=== PATIENT | female | born 1970 | race Caucasian/White ===

== ENCOUNTER 2020-06-27 20:36 | Inpatient (IN) | payer MEDICARE, MEDICAID, SELFPAY ==
[2020-06-27 20:41] VITALS: BP 121/58; BP 162/80; PULSE 107; PULSE 112; RESP 22; TEMP 37.6; O2SAT 95; O2SAT 97; BMI 31.3
--- NOTE | 2020-06-27 20:48 | XR_ITS ---
EXAMINATION: CHEST 1 VIEW CLINICAL INFORMATION: Shortness of breath. COMPARISON: None. TECHNIQUE: An AP view of the chest is provided. FINDINGS: The cardiac silhouette is not enlarged. The mediastinal and hilar contours are unremarkable. There are neither pleural effusions nor pneumothoraces. There is a hazy right lower lobe infiltrate. The osseous structures are unremarkable. XR/XR chest 1V IMPRESSION: Right lower lobe infiltrate concerning for pneumonia. Recommendation is for a followup chest series to be obtained following treatment and/or resolution of symptoms to assure resolution of this appearance.
--- NOTE | 2020-06-27 20:48 | ECG_ITS ---
Test Reason : SHORTNESS OF BREATH Blood Pressure : / mmHG Vent. Rate : 101 BPM Atrial Rate : 101 BPM P-R Int : 168 ms QRS Dur : 090 ms QT Int : 342 ms P-R-T Axes : 063 007 060 degrees QTc Int : 443 ms Sinus tachycardia Nonspecific ST abnormality Abnormal ECG No previous ECGs available Referred By: Generic ED Physician Electronically Signed By:DANTE PATRICIA MD
--- NOTE | 2020-06-27 21:05 | ED.URI ---
HPI - URI/Sore Throat General Chief Complaint: Upper Respiratory Symptoms Stated Complaint: Flu like Symptoms Time Seen by Provider: 06/27/20 21:40 Source: patient Mode of arrival: ambulatory Limitations: no limitations History of Present Illness HPI Narrative: 50-year-old female with past medical history of hypertension and tobacco dependence presents with 24 hours of upper respiratory symptoms, fevers, chills, cough with brown sputum, and hypoxia. She denies chest pain or pressure, palpitations, abdominal pain, abdominal distention, dysuria, hematuria, sick contacts, nausea, vomiting, diarrhea, and edema. MD elicited complaint: fever and cough Related Data Home Medications Medication Instructions Recorded Confirmed gabapentin 75 mg PO DAILY 06/28/20 06/28/20 levothyroxine [Synthroid] 2 tab PO DAILY 06/28/20 06/28/20 lisinopril 1 tab PO DAILY 06/28/20 06/28/20 Allergies Allergy/AdvReac Type Severity Reaction Status Date / Time pregabalin [From Lyrica] Allergy Unknown SWELLING Unverified 04/25/20 16:25 LYRICA Allergy Unknown Uncoded 10/06/11 00:00 Review of Systems Review of Systems: Constitutional: positive Fever, positive Chills, positive fatigue, positive Malaise ENT/Mouth: No sore throat, positive runny nose Eyes: No Discharge Cardiovascular: positive Chest Pain, positive SOB Respiratory: positive Cough, positive Sputum, positive Wheezing, positive Smoke Exposure, positive Dyspnea Gastrointestinal: No Nausea, No Vomiting, No Diarrhea Genitourinary: no irregular bleeding, No Dysuria, No Urinary Frequency, No Hematuria, No Urinary Incontinence, No Urgency, No Flank Pain, Musculoskeletal: positive Myalgia Skin: No rash Neuro: No Headache Yes all other systems are reviewed and are negative [facility] Past Medical History Attestation statement: The following information was validated with the patient. Medical History Edema Fluid retention HTN (hypertension) Social History Social History Advance Directives: No Advance Directives Information Provided: Yes Physical Exam Vital Signs: Vital Signs: Last Vital Signs Temp 100.0 F 06/28/20 00:57 Pulse 97 06/28/20 00:57 Resp 18 06/28/20 00:57 BP 125/71 06/28/20 00:57 Pulse Ox 94 06/28/20 00:57 Body Mass Index 31.3 Appearance: Alert. Oriented X3. moderate distress. Head: Normal external exam. Normocephalic. Atraumatic. Eyes: PERRLA. EOMI. Conjunctiva and sclera normal. Eyelids normal. ENT: TM's Normal. Pharynx normal. Uvula midline. Moist mucous membranes. No trismus noted. No drooling noted. No muffled voice noted. Neck: Normal inspection. Neck supple. No adenopathy. Thyroid Normal. No meningeal signs. No neck mass noted. CVS: Normal heart rate and rhythm. Heart sound normal. No murmurs noted. Pulses equal to all extremities. Respiratory: moderate respiratory distress, RR 25 per minute, O2 sat 88% on room air. Painless inspiration. Breath sounds wheezes greater on the right than the left. Chest tender to palpation on the right side. No accessory muscle usage noted or decreased air movement noted. Abdomen: Soft and nontender. Bowel sounds normal in all 4 quadrants. No distention noted. No organomegaly noted. No visible injury noted. Back: No CVA tenderness. Full range of motion noted. Skin: Skin warm and dry. Normal skin color. Normal skin turgor. No rashes/lesions/lacerations noted. Extremities: No lower extremity edema. Extremities exhibit normal range of motion. Extremities nontender. Neuro: cranial nerves 2-12 intact, no focal neural deficits, strength 5/5 to all extremities, No motor deficit. No sensory deficit. Reflexes normal. Course Course Course Narrative: 50-year-old female with past medical history of hypertension, and tobacco dependence presents with upper respiratory Symptoms for 24 hours. patient presented via EMS, was noted to have Dyspnea at 22, hypoxia in the 88 range, placed on O2 nasal cannula at 2 L at 90% then bumped up to 4 L to maintain Ost 2 sats at 94 through 96% and febrile. her symptoms could be consistent with COVID-19 so will be very gentle with fluid resuscitation at this time. Will order CBC, Chem 7, lactic, cultures, CT scan of the chest, and COVID testing. CBC and Chem 7 are within normal limits with the exception of neutrophil bandemia of 11%, and BUN of 121. 3 L of fluid total ordered, to meet 30 mg/kg for sepsis protocol. Sepsis protocol starts at 10:55 p.m. at 11:30 p.m. patient continues with oxygen 4 liters/minute With O2 sat at 96%. patient desaturates to 88-89% on room air without O2. Plan is to admit for pneumonia and hypoxia. Discussion with hospitalist via tiger text. discussion with family per patient request regarding admission and diagnosis. Consultations Consultation #1: Farhan Morataya Time: 00:10 MDM - URI/Sore Throat MDM Narrative Medical decision making narrative: pneumonia Differential Diagnosis Differential diagnosis: Likely upper respiratory infection, viral infection, bronchitis and influenza Medical Records Attestation: I reviewed the patient's medical records. Lab Data Attestation: I reviewed the patient's lab results. Result diagrams: 06/27/20 20:59 06/27/20 20:59 Labs: Lab Results 06/27/20 06/27/20 06/27/20 Range/Units 20:59 20:59 20:59 WBC 9.4 (4.8-10.8) X10*3/uL RBC 4.33 (4.20-5.50) X10*6/uL Hgb 13.1 (12.0-16.0) g/dl Hct 39.7 (37-47) % MCV 91.7 (80-98) fL MCH 30.3 (27.0-33.0) pg MCHC 33.0 (31.0-35.0) g/dl RDW 12.9 (11.0-16.0) % Plt Count 228 (160-400) X10*3/uL MPV 10.3 (9.4-12.3) fL Immature Gran % (Auto) Cancelled Neut % (Auto) Cancelled Lymph % (Auto) Cancelled [place] % (Auto) Cancelled Eos % (Auto) Cancelled Baso % (Auto) Cancelled Lymph # (Auto) Cancelled [place] # (Auto) Cancelled Eos # (Auto) Cancelled Baso # (Auto) Cancelled Abs Immat Gran (auto) Cancelled Absolute Neuts (auto) Cancelled Absolute Nucleated RBC 0.000 (0.0-0.012) X10*3/uL Nucleated RBC % (auto) 0.0 (0.0-0.2) /100WBC Neutrophils % (Manual) 69 (45-73) % Band Neutrophils % 11 H (3-5) % Lymphocytes % (Manual) 11 L (20-40) % Monocytes % (Manual) 3 (2-11) % Eosinophils % (Manual) 2 (0-4) % Metamyelocytes % 4 % Abs Neuts (Manual) 7.5 (2.2-7.9) X10*3/uL Lymphocytes # (Manual) 1.0 (0.6-4.8) X10*3/uL Monocytes # (Manual) 0.3 (0.0-1.2) X10*3/uL Eosinophils # (Manual) 0.2 (0.0-0.8) X10*3/UL Metamyelocytes # 0.4 X10*3/uL Toxic Vacuolation PRESENT Platelet Estimate NORMAL (NORMAL) Plt Morphology Comment NORMAL RBC Morphology NORMAL Hold Blue Top SEE NOTE Sodium 141 (135-145) mmol/L Potassium 3.8 (3.3-5.1) mmol/l Chloride 103 (96-108) mmol/L Carbon Dioxide 27 (22-29) mmol/L Anion Gap 15 (12-20) BUN 12 (9-16) mg/dL Creatinine 0.92 (0.5-1.4) mg/dL Estim Creat Clear Calc 82.7 Estimated GFR > 60 Random Glucose 105 (60-115) mg/dL Lactic Acid (0.5-2.0) mmol/L Calcium 8.6 (8.4-10.2) mg/dL Troponin I High Sens (<3.5-17.0) ng/L B-Natriuretic Peptide (<100) pg/mL Coronavirus (PCR) (Negative) Influenza Type A (PCR) (Negative) Influenza Type B (PCR) (Negative) RSV RNA Qual (PCR) (Negative) 06/27/20 06/27/20 06/27/20 Range/Units 20:59 22:55 22:55 WBC (4.8-10.8) X10*3/uL RBC (4.20-5.50) X10*6/uL Hgb (12.0-16.0) g/dl Hct (37-47) % MCV (80-98) fL MCH (27.0-33.0) pg MCHC (31.0-35.0) g/dl RDW (11.0-16.0) % Plt Count (160-400) X10*3/uL MPV (9.4-12.3) fL Immature Gran % (Auto) Neut % (Auto) Lymph % (Auto) [place] % (Auto) Eos % (Auto) Baso % (Auto) Lymph # (Auto) [place] # (Auto) Eos # (Auto) Baso # (Auto) Abs Immat Gran (auto) Absolute Neuts (auto) Absolute Nucleated RBC (0.0-0.012) X10*3/uL Nucleated RBC % (auto) (0.0-0.2) /100WBC Neutrophils % (Manual) (45-73) % Band Neutrophils % (3-5) % Lymphocytes % (Manual) (20-40) % Monocytes % (Manual) (2-11) % Eosinophils % (Manual) (0-4) % Metamyelocytes % % Abs Neuts (Manual) (2.2-7.9) X10*3/uL Lymphocytes # (Manual) (0.6-4.8) X10*3/uL Monocytes # (Manual) (0.0-1.2) X10*3/uL Eosinophils # (Manual) (0.0-0.8) X10*3/UL Metamyelocytes # X10*3/uL Toxic Vacuolation Platelet Estimate (NORMAL) Plt Morphology Comment RBC Morphology Hold Blue Top Sodium (135-145) mmol/L Potassium (3.3-5.1) mmol/l Chloride (96-108) mmol/L Carbon Dioxide (22-29) mmol/L Anion Gap (12-20) BUN (9-16) mg/dL Creatinine (0.5-1.4) mg/dL Estim Creat Clear Calc Estimated GFR Random Glucose (60-115) mg/dL Lactic Acid 1.3 (0.5-2.0) mmol/L Calcium (8.4-10.2) mg/dL Troponin I High Sens < 3.5 (<3.5-17.0) ng/L B-Natriuretic Peptide 121 H (<100) pg/mL Coronavirus (PCR) NEGATIVE (Negative) Influenza Type A (PCR) NEGATIVE (Negative) Influenza Type B (PCR) NEGATIVE (Negative) RSV RNA Qual (PCR) NEGATIVE (Negative) Imaging Data Chest x-ray: Attestation: I personally reviewed and interpreted this imaging study as follows: Radiologist's impression: EXAMINATION: CHEST 1 VIEW CLINICAL INFORMATION: Shortness of breath. COMPARISON: None. TECHNIQUE: An AP view of the chest is provided. FINDINGS: The cardiac silhouette is not enlarged. The mediastinal and hilar contours are unremarkable. There are neither pleural effusions nor pneumothoraces. There is a hazy right lower lobe infiltrate. The osseous structures are unremarkable. XR/XR chest 1V IMPRESSION: Right lower lobe infiltrate concerning for pneumonia. Recommendation is for a followup chest series to be obtained following treatment and/or resolution of symptoms to assure resolution of this appearance. CT scan - chest: Attestation: I personally reviewed and interpreted this imaging study as follows: Radiologist's impression: EXAMINATION: CT CHEST WITHOUT CONTRAST CLINICAL INFORMATION: Shortness of breath. Abnormal radiograph. COMPARISON: Chest radiograph from 06/27/2020 TECHNIQUE: Multidetector volumetric CT imaging of the chest was done. Axial MIP volume rendering provided. Sagittal and coronal reformatted images were obtained. This CT examination was performed using dose optimization techniques as appropriate, variously including the following: *Automated exposure control *Adjustment of mA and/or kV according to patient size (this includes techniques or standardized protocols for targeted exams where dose is matched to indication/reason for exam; i.e. extremities or head) *Use of iterative reconstruction technique DLP: 310 mGy-cm FINDINGS: LUNGS AND PLEURA: Trachea and central airways are widely patent and normal in caliber. The bronchial mon are diffusely thickened in both lungs. Mild centrilobular emphysema. There are several old small calcified nodules in lower lobes. Mild patchy groundglass opacity is present in the periphery of the anterior right upper lobe. Several small nodular and/or airspace opacities are present in the right middle lobe, consistent with infectious or inflammatory changes. There is patchy consolidation and groundglass attenuation in the right lower lobe. No evidence of pulmonary mass, pleural effusion or pneumothorax. CARDIOVASCULAR: The heart size is normal. Pulmonary arteries and thoracic aorta are normal in caliber. No pericardial effusion. MEDIASTINUM AND LOWER NECK: Esophagus and thyroid gland are unremarkable. No mediastinal mass. LYMPHATICS: No axillary or internal mammary lymphadenopathy. The visualized mediastinal lymph nodes are in the normal size range. No overt hilar lymphadenopathy is detected on this noncontrast examination. UPPER ABDOMEN: 1.9 x 2.2 cm smoothly marginated nodule of the right adrenal gland has low attenuation of 3 Hounsfield units, consistent with lipid rich adenoma. It was 1.5 x 1.9 cm on 02/17/2016. SKELETAL AND CHEST WALL: The thoracic vertebra have normal height and alignment. No suspicious skeletal lesions. No chest wall mass. CT/CT chest wo con IMPRESSION: * Mild pulmonary emphysema. * The right lower lobe consolidation and intermixed ground glass opacity is consistent with pneumonia. Infectious/inflammatory changes are observed to lesser degree in the anterior right upper lobe and right middle lobe. No pleural effusion or lymphadenopathy. 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 ECG Data Attestation: I personally reviewed and interpreted this ECG as follows: ECG interpretation date: 06/27/20 ECG interpretation time: 21:03 Interpretation: Vent. Rate : 101 BPM Atrial Rate : 101 BPM P-R Int : 168 ms QRS Dur : 090 ms QT Int : 342 ms P-R-T Axes : 063 007 060 degrees QTc Int : 443 ms Sinus tachycardia Nonspecific T wave abnormality Abnormal ECG No previous ECGs available Critical Care Time Critical Care Time Critical Care Time: Yes Total Critical Care Time: 60 Attestation: I have personally provided critical care time exclusive of time spent on separately billable procedures. Time includes review of laboratory data, radiology results, discussion with consultants, and monitoring for potential decompensation. Interventions were performed as documented. Discharge Plan Discharge Clinical Impression: Hypoxia Pneumonia Qualifiers: Pneumonia type: due to unspecified organism Laterality: right Lung location: lower lobe of lung Qualified Code(s): J18.9 - Pneumonia, unspecified organism Sepsis Qualifiers: Sepsis type: sepsis due to unspecified organism Sepsis acute organ dysfunction status: unspecified Qualified Code(s): A41.9 - Sepsis, unspecified organism Patient Disposition: Admitted As Inpatient
[2020-06-27 21:08] LABS: Hematocrit 39.7 % (37-47); Hemoglobin 13.1 g/dl (12.0-16.0); Mean Corpuscular Hemoglobin 30.3 pg (27.0-33.0); Mean Corpuscular Volume 91.7 fL (80-98); Mean Platelet Volume 10.3 fL (9.4-12.3); Platelet Count 228 X10*3/uL (160-400); Red Blood Count 4.33 X10*6/uL (4.20-5.50); Red Cell Distribution Width 12.9 % (11.0-16.0); White Blood Count 9.4 X10*3/uL (4.8-10.8)
[2020-06-27 21:36] LABS: Anion Gap 15 (12-20); Blood Urea Nitrogen 12 mg/dL (9-16); Calcium 8.6 mg/dL (8.4-10.2); Carbon Dioxide 27 mmol/L (22-29); Chloride 103 mmol/L (96-108); Creatinine Clr Calc Pharmacy 82.7; Estimated Glomerular Filt Rate > 60; Glucose Random 105 mg/dL (60-115); Potassium 3.8 mmol/l (3.3-5.1); Sodium 141 mmol/L (135-145)
[2020-06-27 21:40] LABS: B Type Natriuretic Peptide 121 pg/mL (<100); Troponin-I High Sensitivity < 3.5 ng/L (<3.5-17.0)
--- NOTE | 2020-06-27 21:41 | CT_ITS ---
EXAMINATION: CT CHEST WITHOUT CONTRAST CLINICAL INFORMATION: Shortness of breath. Abnormal radiograph. COMPARISON: Chest radiograph from 06/27/2020 TECHNIQUE: Multidetector volumetric CT imaging of the chest was done. Axial MIP volume rendering provided. Sagittal and coronal reformatted images were obtained. This CT examination was performed using dose optimization techniques as appropriate, variously including the following: *Automated exposure control *Adjustment of mA and/or kV according to patient size (this includes techniques or standardized protocols for targeted exams where dose is matched to indication/reason for exam; i.e. extremities or head) *Use of iterative reconstruction technique DLP: 310 mGy-cm FINDINGS: LUNGS AND PLEURA: Trachea and central airways are widely patent and normal in caliber. The bronchial mon are diffusely thickened in both lungs. Mild centrilobular emphysema. There are several old small calcified nodules in lower lobes. Mild patchy groundglass opacity is present in the periphery of the anterior right upper lobe. Several small nodular and/or airspace opacities are present in the right middle lobe, consistent with infectious or inflammatory changes. There is patchy consolidation and groundglass attenuation in the right lower lobe. No evidence of pulmonary mass, pleural effusion or pneumothorax. CARDIOVASCULAR: The heart size is normal. Pulmonary arteries and thoracic aorta are normal in caliber. No pericardial effusion. MEDIASTINUM AND LOWER NECK: Esophagus and thyroid gland are unremarkable. No mediastinal mass. LYMPHATICS: No axillary or internal mammary lymphadenopathy. The visualized mediastinal lymph nodes are in the normal size range. No overt hilar lymphadenopathy is detected on this noncontrast examination. UPPER ABDOMEN: 1.9 x 2.2 cm smoothly marginated nodule of the right adrenal gland has low attenuation of 3 Hounsfield units, consistent with lipid rich adenoma. It was 1.5 x 1.9 cm on 02/17/2016. SKELETAL AND CHEST WALL: The thoracic vertebra have normal height and alignment. No suspicious skeletal lesions. No chest wall mass. CT/CT chest wo con IMPRESSION: * Mild pulmonary emphysema. * The right lower lobe consolidation and intermixed ground glass opacity is consistent with pneumonia. Infectious/inflammatory changes are observed to lesser degree in the anterior right upper lobe and right middle lobe. No pleural effusion or lymphadenopathy. 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
[2020-06-27 21:42] LABS: Band Neutrophils Percent 11 % (3-5); Eosinophils Absolute Manual 0.2 X10*3/UL (0.0-0.8); Eosinophils Percent Manual 2 % (0-4); Lymphocytes Percent Manual 11 % (20-40); Metamyelocytes Absolute 0.4 X10*3/uL; Metamyelocytes Percent 4 %; Monocytes Absolute Manual 0.3 X10*3/uL (0.0-1.2); Monocytes Percent Manual 3 % (2-11); Neutrophils Absolute Manual 7.5 X10*3/uL (2.2-7.9); Neutrophils Percent Manual 69 % (45-73)
[2020-06-27 21:46] LABS: Platelet Estimate NORMAL (NORMAL); Platelet Morphology Comment NORMAL; RBC Morphology NORMAL
[2020-06-27 21:48] LABS: Toxic Vacuolation PRESENT
[2020-06-27] MEDS: 0.9 % Sodium Chloride 1,000 ML 999 ML IVCONT (22:20)
[2020-06-27] MEDS: dexAMETHasone sod phosphate 4 MG/ML VIAL 10 MG IVPUSH (22:21)
[2020-06-27] MEDS: Azithromycin 500 MG TABLET PO (22:44)
[2020-06-27] MEDS: cefTRIAXone sodium 1 GM in 0.9 % Sodium Chloride 50 ML IV (22:45)
[2020-06-27 23:08] VITALS: BP 125/59; PULSE 100; RESP 20; TEMP 38.7; O2SAT 96
--- NOTE | 2020-06-27 23:12 | PC.NURSE ---
pt has pain to her flanks with coughig
[2020-06-27 23:25] VITALS: BP 104/47; PULSE 103; O2SAT 94
[2020-06-27 23:45] LABS: Lactic Acid 1.3 mmol/L (0.5-2.0)
[2020-06-28] VITALS (10 sets, daily range): BP systolic 91–125; BP diastolic 50–82; PULSE 70–98; RESP 16–19; TEMP 35.7–37.8; O2SAT 90–96; BMI 31.3
[2020-06-28 00:12] LABS: Influenza A PCR NEGATIVE (Negative); Influenza B PCR NEGATIVE (Negative); Resp Syncy Virus RNA Qual PCR NEGATIVE (Negative); SARS COV2 PCR INHOUSE NEGATIVE (Negative)
--- NOTE | 2020-06-28 00:22 | PC.NURSE ---
pt oob to bathroom with steady slow gait.
--- NOTE | 2020-06-28 00:49 | PM.IMHP ---
History of Present Illness Date of Service: 06/28/20 Chief Complaint: SOB 50 y/o female with PMHx of HTN, Hypothyroidism and Peripheral neuropathy who presented from home due to malaise. Per history provided by the patient, for the past 2 days has been having worsening dry cough, chills, nausea, vomiting and poor appetite which prompted the patient to come to the ED for further evaluation. On presentation to the ED patient is found to be tachycardic, tachypneic with one episode of fever of 101.6. Bloodwork unremarkable besides BNP of ~120. Covid test negative. CT chest positive for RLL consolidation with ground glass opacities, emphysematous changes and incidental finding of lipid rich adenoma of the right adrenal gland. One dose of Rocephin, zithromax and 1 liter of NS given per ED. Decision for admission given. Patient seen and examined at the bedside, laying down in bed in no acute distress. ROS as above otherwise negative. Physical exam unremarkable. PMHX: HTN, HYpothyroidism, Peripheral neuropathy pSx: none Toxic habits: No hx of alcohol abuse, smoking or IVDA Review of Systems Cardiovascular: Cardiovascular: Reports dyspnea Respiratory: Respiratory: Reports cough, Reports pain with cough and Reports dyspnea PMFSH Medical History Edema Fluid retention HTN (hypertension) Functional capacity: independent ambulation Social History Advance Directives: No Advance Directives Information Provided: Yes Meds Allergies Allergy/AdvReac Type Severity Reaction Status Date / Time pregabalin [From Lyrica] Allergy Unknown SWELLING Unverified 04/25/20 16:25 LYRICA Allergy Unknown Uncoded 10/06/11 00:00 Home Medications Medication Instructions Recorded Confirmed Type gabapentin 75 mg PO DAILY 06/28/20 06/28/20 History levothyroxine [Synthroid] 2 tab PO DAILY 06/28/20 06/28/20 History lisinopril 1 tab PO DAILY 06/28/20 06/28/20 History Physical Exam Vital Signs and Narrative: Vital Signs: Last Vital Signs Temp 101.6 F H 06/27/20 23:08 Pulse 100 06/27/20 23:08 Resp 20 06/27/20 23:08 BP 125/59 L 06/27/20 23:08 Pulse Ox 96 06/27/20 23:08 Body Mass Index 31.3 Const: General: cooperative, comfortable and no acute distress Orientation/consciousness: oriented to person, oriented to place and oriented to time HENMT: Head: Yes normal to inspection Eyes: General: appearance normal, both eyes and all related structures Neck: Yes normal visual inspection Chest: Chest palpation & inspection: normal inspection of the chest Resp: Effort & Inspection: normal respiratory effort Cardio: Jugular venous distension: no JVD Rate: regular rate Rhythm: regular rhythm Heart sounds: S1 normal heart sound present and S2 normal heart sound present GI: Inspection: Yes normal to inspection Skin: General skin exam: no rashes or lesions noted Neuro: General: oriented to person, oriented to place and oriented to time Cognition (Neuro): normal cognition Motor exam (neuro): 5/5 motor strength present throughout Extrem: General: Yes normal to inspection Psych: Appearance: grossly normal Results Labs CBC and Chem 7: 06/27/20 20:59 06/27/20 20:59 Labs: Laboratory Results - last 24 hr 06/27/20 06/27/20 06/27/20 20:59 20:59 20:59 MCV 91.7 MCH 30.3 MCHC 33.0 RDW 12.9 Plt Count 228 MPV 10.3 Immature Gran % (Auto) Cancelled Neut % (Auto) Cancelled Lymph % (Auto) Cancelled [place] % (Auto) Cancelled Eos % (Auto) Cancelled Baso % (Auto) Cancelled Lymph # (Auto) Cancelled [place] # (Auto) Cancelled Eos # (Auto) Cancelled Baso # (Auto) Cancelled Abs Immat Gran (auto) Cancelled Absolute Neuts (auto) Cancelled Absolute Nucleated RBC 0.000 Nucleated RBC % (auto) 0.0 Neutrophils % (Manual) 69 Band Neutrophils % 11 H Lymphocytes % (Manual) 11 L Monocytes % (Manual) 3 Eosinophils % (Manual) 2 Metamyelocytes % 4 Abs Neuts (Manual) 7.5 Lymphocytes # (Manual) 1.0 Monocytes # (Manual) 0.3 Eosinophils # (Manual) 0.2 Metamyelocytes # 0.4 Toxic Vacuolation PRESENT Platelet Estimate NORMAL Plt Morphology Comment NORMAL RBC Morphology NORMAL Hold Blue Top SEE NOTE Anion Gap 15 Estim Creat Clear Calc 82.7 Estimated GFR > 60 Random Glucose 105 Lactic Acid Calcium 8.6 Troponin I High Sens B-Natriuretic Peptide Coronavirus (PCR) Influenza Type A (PCR) Influenza Type B (PCR) RSV RNA Qual (PCR) 06/27/20 06/27/20 06/27/20 20:59 22:55 22:55 MCV MCH MCHC RDW Plt Count MPV Immature Gran % (Auto) Neut % (Auto) Lymph % (Auto) [place] % (Auto) Eos % (Auto) Baso % (Auto) Lymph # (Auto) [place] # (Auto) Eos # (Auto) Baso # (Auto) Abs Immat Gran (auto) Absolute Neuts (auto) Absolute Nucleated RBC Nucleated RBC % (auto) Neutrophils % (Manual) Band Neutrophils % Lymphocytes % (Manual) Monocytes % (Manual) Eosinophils % (Manual) Metamyelocytes % Abs Neuts (Manual) Lymphocytes # (Manual) Monocytes # (Manual) Eosinophils # (Manual) Metamyelocytes # Toxic Vacuolation Platelet Estimate Plt Morphology Comment RBC Morphology Hold Blue Top Anion Gap Estim Creat Clear Calc Estimated GFR Random Glucose Lactic Acid 1.3 Calcium Troponin I High Sens < 3.5 B-Natriuretic Peptide 121 H Coronavirus (PCR) NEGATIVE Influenza Type A (PCR) NEGATIVE Influenza Type B (PCR) NEGATIVE RSV RNA Qual (PCR) NEGATIVE Imaging Radiologist's Impressions: Impressions Chest X-Ray 06/27/20 20:48 IMPRESSION: Right lower lobe infiltrate concerning for pneumonia. Recommendation is for a followup chest series to be obtained following treatment and/or resolution of symptoms to assure resolution of this appearance. Chest CT 06/27/20 21:41 IMPRESSION: * Mild pulmonary emphysema. * The right lower lobe consolidation and intermixed ground glass opacity is consistent with pneumonia. Infectious/inflammatory changes are observed to lesser degree in the anterior right upper lobe and right middle lobe. No pleural effusion or lymphadenopathy. 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 Assessment and Plan (1) Sepsis: Qualifiers: Sepsis acute organ dysfunction status: unspecified Sepsis type: sepsis due to unspecified organism Qualified Code(s): A41.9 - Sepsis, unspecified organism Status: Acute Keep MAP >65 mmHg Start with Zosyn for broadspectrum coverage Follow up Bcx collected in the ED Continue with IV hydration Covid negative Infectious disease consult in the am (2) Pneumonia: Qualifiers: Laterality: right Lung location: lower lobe of lung Pneumonia type: due to unspecified organism Qualified Code(s): J18.9 - Pneumonia, unspecified organism Status: Acute as above (3) Peripheral neuropathy: Status: Acute continue with gabapentin home dose (4) Hypothyroidism: Status: Acute continue with levothyroxine home dose (5) HTN (hypertension): Status: Acute continue with lisinopril home dose
[2020-06-28] MEDS: Ketorolac Tromethamine 30 MG/ML VIAL IVPUSH (00:52)
[2020-06-28] MEDS: 0.9 % Sodium Chloride 1,000 ML 999 ML IVCONT ×2 (00:52→01:00)
[2020-06-28 01:15] LABS: Appearance Urine CLEAR; Color Urine DARK YELLOW; Glucose Urine UA NEG (NEG); Leukocyte Esterase Urine NEG (NEG); Nitrite Urine NEG (NEG); Specific Gravity - Urine 1.025 (1.005-1.025); Urine Blood TRACE (NEG); Urine Ketones NEG (NEG); Urine Protein TRACE MG/DL (NEG-TRACE)
[2020-06-28 01:30] LABS: RBC Urine 0-2 /HPF (0); Squamous Epithelial Cell Urine TRACE /LPF; WBC Urine 0 /HPF (0-4)
--- NOTE | 2020-06-28 03:10 | PC.NURSE ---
VITALS STABLE HR 82 103/54 17 94% ROOM AIR. PT SLEEPING, SKIN WARM AND DRY. PT OOB TO BATHROOM WITH STEADY GAIT.
[2020-06-28] MEDS: Heparin Sodium,Porcine 5,000 UNIT/ML VIAL 5000 UNIT SUBCUT ×3 (05:02→16:36)
[2020-06-28] MEDS: Piperacillin Sodium/Tazobactam 3.375 GM in 0.9 % Sodium Chloride 50 ML IV ×2 (05:03→13:40)
[2020-06-28] MEDS: Levothyroxine Sodium 112 MCG TABLET 224 MCG PO (07:05)
--- NOTE | 2020-06-28 07:38 | PC.NURSE ---
report taken from miriam hurst pt awaiting inpt admission and bed assignment. rr even/unlabored, tolerating po w/o issue.
--- NOTE | 2020-06-28 07:56 | PC.NURSE ---
first pt call for report unsuccessul, will call back.
[2020-06-28] MEDS: lisinopriL 10 MG TABLET PO (09:02)
[2020-06-28] MEDS: clonazePAM 1 MG TABLET PO (09:02)
[2020-06-28] MEDS: Pregabalin 75 MG CAPSULE PO (09:02)
[2020-06-28] MEDS: gemfibroziL 600 MG TABLET PO ×2 (09:02→20:05)
[2020-06-28] MEDS: Escitalopram Oxalate 20 MG TABLET PO (09:02)
[2020-06-28] MEDS: 0.9 % Sodium Chloride Flush 3 ML SYRINGE IVFLUSH ×2 (09:06→16:36)
[2020-06-28 10:35] LABS: Hematocrit 36.9 % (37-47); Hemoglobin 12.1 g/dl (12.0-16.0); Mean Corpuscular HGB Conc 32.8 g/dl (31.0-35.0); Mean Corpuscular Volume 91.6 fL (80-98); Mean Platelet Volume 10.4 fL (9.4-12.3); Platelet Count 225 X10*3/uL (160-400); Red Blood Count 4.03 X10*6/uL (4.20-5.50); Red Cell Distribution Width 13.3 % (11.0-16.0); White Blood Count 14.5 X10*3/uL (4.8-10.8)
[2020-06-28 11:11] LABS: Anion Gap 14 (12-20); Blood Urea Nitrogen 10 mg/dL (9-16); Calcium 8.2 mg/dL (8.4-10.2); Carbon Dioxide 26 mmol/L (22-29); Chloride 106 mmol/L (96-108); Creatinine Clr Calc Pharmacy 102.8; Estimated Glomerular Filt Rate > 60; Glucose Random 119 mg/dL (60-115); Potassium 3.9 mmol/l (3.3-5.1); Sodium 142 mmol/L (135-145)
[2020-06-28 11:31] LABS: Band Neutrophils Percent 33 % (3-5); Lymphocytes Absolute Manual 0.7 X10*3/uL (0.6-4.8); Lymphocytes Percent Manual 5 % (20-40); Neutrophils Absolute Manual 13.8 X10*3/uL (2.2-7.9); Neutrophils Percent Manual 62 % (45-73)
[2020-06-28 11:50] LABS: RBC Morphology NOTED
[2020-06-28 11:51] LABS: Acanthocytes 1+; Platelet Estimate NORMAL (NORMAL); Platelet Morphology Comment NORMAL
--- NOTE | 2020-06-28 15:34 | W.PM.IDCN ---
History of Present Illness Data of Consult Service Date: 06/28/20 Requesting physician: Chester Kumar Primary Care Provider: Unknown Physician HPI Reason for consult: productive sputum and pleuritic chest pain She presents with pleuritic chest pain 10/16 as well as cough and pleuritic sputum. She has no fever or chills at this time She has no nausea or vomiting Review of Systems Review of Systems: Yes all other systems are reviewed and are negative Respiratory: Respiratory: Reports no additional respiratory complaints and Reports excessive phlegm production PMFSH Past Medical History Medical History Edema Fluid retention HTN (hypertension) Functional capacity: independent ambulation Social History Social History Household Members: Spouse and Other Household Members Other:: Grandchildren Housing: Apartment Do you presently have visiting nurse or other home services: No Smoking Status: Current every day smoker Tobacco Type: Cigarette Cigarettes Per Day: 20 Smoked in Last 30 Days: Yes Use of substances other than those prescribed or required for medical reasons: No Currently Displaying Signs/Symptoms of Drug Intoxication Withdrawal: No Have you been hit, kicked, punched, or otherwise hurt by someone within the past year? If so, by whom?: No Do you feel safe in your current relationship?: Yes Is there a partner from a previous relationship who is making you feel unsafe now?: No Are you made to feel afraid or neglected: No Spiritual Healthcare Practices: N/A Holiness Healthcare Practices: N/A Cultural Healthcare Practices: N/A Advance Directives: No Advance Directives Information Provided: Yes Do you have thoughts of harming others: None Do you have a plan to hurt others: No Plan Recently lost weight without trying: No Meds Allergies Allergy/AdvReac Type Severity Reaction Status Date / Time No Known Allergies Allergy Verified 06/28/20 07:48 Home Medications Medication Instructions Recorded Confirmed Type citalopram 40 mg PO DAILY 06/28/20 06/28/20 History clonazepam 1 mg PO TID 06/28/20 06/28/20 History furosemide 40 mg PO Q OTHER DAY 06/28/20 06/28/20 History furosemide 60 mg PO Q OTHER DAY 06/28/20 06/28/20 History gemfibrozil 600 mg PO BID 06/28/20 06/28/20 History levothyroxine [Synthroid] 224 mcg PO DAILY 06/28/20 06/28/20 History lisinopril 10 mg PO DAILY 06/28/20 06/28/20 History pregabalin 75 mg PO DAILY 06/28/20 06/28/20 History Physical Exam Vital Signs: Vital Signs: Last Vital Signs Temp 98.2 F 06/28/20 15:12 Pulse 92 06/28/20 15:12 Resp 18 06/28/20 15:12 BP 91/53 L 06/28/20 15:12 Pulse Ox 91 L 06/28/20 15:12 Body Mass Index 31.3 Const: General: cooperative Orientation/consciousness: oriented to person, oriented to place and oriented to time HENMT: Head: Yes normal to inspection Eyes: General: appearance normal, both eyes and all related structures Chest: Chest palpation & inspection: localized rib tenderness with anteroposterior compression Resp: Effort & Inspection: normal respiratory effort Auscultation: rhonchi (right base) Cardio: Rate: regular rate Rhythm: regular rhythm Back/Spine/Pelvis: Thoracic/Lumbar Spine: thoracic and lumbar spine normal to inspection Skin: Rashes: no rashes Neuro: General: oriented to person, oriented to place and oriented to time Cranial nerves: Yes Intact sense of smell present Assessment and Plan (1) Pneumonia: Qualifiers: Laterality: right Lung location: lower lobe of lung Pneumonia type: due to unspecified organism Qualified Code(s): J18.9 - Pneumonia, unspecified organism Status: Acute Would give IV Ceftriaxone and Zmax Po Ceftin and Zpack finish total 7 days as outpatient There is no need for Zosyn No need for COVID isolation,please remove (2) Hypoxia: Status: Acute (3) Sepsis: Qualifiers: Sepsis acute organ dysfunction status: unspecified Sepsis type: sepsis due to unspecified organism Qualified Code(s): A41.9 - Sepsis, unspecified organism Status: Acute Results Labs CBC & Chem 7: 06/29/20 06:25 06/29/20 06:25 Labs: Short CBC 06/27/20 06/28/20 Range/Units 20:59 10:15 WBC 9.4 14.5 H (4.8-10.8) X10*3/uL Hgb 13.1 12.1 (12.0-16.0) g/dl Hct 39.7 36.9 L (37-47) % Plt Count 228 225 (160-400) X10*3/uL BMP 06/27/20 06/28/20 20:59 10:15 Sodium 141 142 Potassium 3.8 3.9 Chloride 103 106 Carbon Dioxide 27 26 BUN 12 10 Creatinine 0.92 0.74 Calcium 8.6 8.2 L Urine 06/28/20 Range/Units 01:07 Urine Color DARK YELLOW Urine Appearance CLEAR Urine pH 6.0 (5.0-8.0) Ur Specific [place] 1.025 (1.005-1.025) Urine Protein TRACE (NEG-TRACE) MG/DL Urine Glucose (UA) NEG (NEG) MG/DL Microbiology Microbiology Results: Microbiology 06/27/20 22:37 Sputum - Expectorated Gram Stain - Final
--- NOTE | 2020-06-28 16:13 | PM.EVENT ---
Event Note Date of Service: 06/28/20 Event Note: Patient already seen by hospitalist team this morning Patient still seeing his shortness of breath cough Cvs: rrr, [id number] , no murmur res: Air entry slightly diminished at bases, no rales or wheezing abd: no rebound or guarding ,nt, bs present. ext pulses present , no cyanosis neuro: axo3 , nonfocal. Assessment and plan: Sepsis/pneumonia: Labs [place] has leukocytosis No fever Shortness of breath slowly improving, oxygen sats also better Ceftriaxone and azithromycin Id evaluation
--- NOTE | 2020-06-28 16:31 | PC.NURSE ---
Pt admitted today from ED for PNA. On arrival to c pt alert and oriented. VSS. Able to provide her own history. New IV started to RL arm. IVF continue infusing. Pt calm and cooperative. SR on monitor. Lungs with exp wheexing but sats wln on room air.
[2020-06-28] MEDS: cefTRIAXone sodium 2 GM in 0.9 % Sodium Chloride 50 ML IV (16:35)
[2020-06-28] MEDS: Flu Vacc QS2020-21(6mos up)/PF 0.5 ML SYRINGE IM (16:37)
[2020-06-28 21:49] LABS: Amphetamine Screen Urine Not Detected (Not Detect); Barbiturates, Urine Not Detected (Not Detect); Benzodiazepines Screen Urine POSITIVE (Not Detect); Cannabinoid Screen Urine Not Detected (Not Detect); Cocaine Screen Urine Not Detected (Not Detect); Opiate Screen Urine POSITIVE (Not Detect); Phencyclidine Screen Urine Not Detected (Not Detect)
[2020-06-29] MEDS: Acetaminophen 325 MG TABLET 650 MG PO (00:46)
[2020-06-29] MEDS: Heparin Sodium,Porcine 5,000 UNIT/ML VIAL 5000 UNIT SUBCUT ×2 (00:47→08:14)
[2020-06-29 02:58] VITALS: BP 108/62; PULSE 62; RESP 19; TEMP 36.1; O2SAT 93
[2020-06-29] MEDS: Omeprazole 20 MG CAPSULE.DR PO (05:48)
[2020-06-29] MEDS: Levothyroxine Sodium 112 MCG TABLET 224 MCG PO (05:48)
[2020-06-29 07:41] LABS: Hematocrit 32.4 % (37-47); Hemoglobin 10.6 g/dl (12.0-16.0); Mean Corpuscular HGB Conc 32.7 g/dl (31.0-35.0); Mean Corpuscular Hemoglobin 30.1 pg (27.0-33.0); Platelet Count 227 X10*3/uL (160-400); Red Blood Count 3.52 X10*6/uL (4.20-5.50); Red Cell Distribution Width 13.8 % (11.0-16.0); White Blood Count 13.7 X10*3/uL (4.8-10.8)
[2020-06-29 08:00] VITALS: BP 126/73; PULSE 69; RESP 20; TEMP 36.6; O2SAT 93
[2020-06-29 08:06] LABS: Anion Gap 11 (12-20); Blood Urea Nitrogen 14 mg/dL (9-16); Carbon Dioxide 26 mmol/L (22-29); Chloride 108 mmol/L (96-108); Creatinine Clr Calc Pharmacy 118.8; Estimated Glomerular Filt Rate > 60; Glucose Random 94 mg/dL (60-115); Potassium 3.8 mmol/l (3.3-5.1); Sodium 141 mmol/L (135-145)
[2020-06-29] MEDS: Azithromycin 500 MG in 0.9 % Sodium Chloride 250 ML 125 MG IV (08:09)
[2020-06-29] MEDS: 0.9 % Sodium Chloride 1,000 ML 100 ML IVCONT (08:12)
[2020-06-29] MEDS: clonazePAM 1 MG TABLET PO (08:14)
[2020-06-29] MEDS: Pregabalin 75 MG CAPSULE PO (08:14)
[2020-06-29] MEDS: 0.9 % Sodium Chloride Flush 3 ML SYRINGE IVFLUSH (08:14)
[2020-06-29 08:15] VITALS: BP 126/73; PULSE 69
[2020-06-29] MEDS: Furosemide 40 MG TABLET PO (08:15)
[2020-06-29] MEDS: Escitalopram Oxalate 20 MG TABLET PO (08:15)
[2020-06-29] MEDS: lisinopriL 10 MG TABLET PO (08:15)
[2020-06-29] MEDS: gemfibroziL 600 MG TABLET PO (08:15)
--- NOTE | 2020-06-29 10:21 | P.DS_ITS ---
DS: Providers Provider Date of admission: 06/28/20 00:48 Primary care physician: Unknown Physician Consults: 06/28/20 13:20 Consult to Infectious Diseases Routine Consulting Provider: Zulma Shields Reason for consultation: PNEUMONIA Has provider been notified: No DS: Diagnosis Discharge Diagnosis (1) Pneumonia: Status: Acute (2) Hypoxia: Status: Acute (3) Sepsis: Status: Acute DS: Medications Discharge Medications Home Medications: Home Medications Medication Instructions Recorded Confirmed citalopram 40 mg PO DAILY 06/28/20 06/28/20 clonazepam 1 mg PO TID 06/28/20 06/28/20 furosemide 40 mg PO Q OTHER DAY 06/28/20 06/28/20 furosemide 60 mg PO Q OTHER DAY 06/28/20 06/28/20 gemfibrozil 600 mg PO BID 06/28/20 06/28/20 levothyroxine [Synthroid] 224 mcg PO DAILY 06/28/20 06/28/20 lisinopril 10 mg PO DAILY 06/28/20 06/28/20 pregabalin 75 mg PO DAILY 06/28/20 06/28/20 Previous Rx's Medication Instructions Recorded azithromycin 500 mg PO DAILY #5 tab 06/29/20 cefuroxime axetil 500 mg PO BID #10 tab 06/29/20 DS: Summary Hospital Course Hospital Course: 50-year-old female admitted with sepsis secondary to pneumonia patient was started on IV antibiotic blood cultures were sent, COVID PCR was negative, sepsis resolved, patient remains afebrile, patient's symptoms improved, blood cultures remain negative, patient was saturating well on room air,patient was stable discharged home on p.o. antibiotic Time Spent with Patient Time attestation: Total time spent providing and/or coordinating discharge services: Physical Exam Vital Signs: Vital Signs: Last Vital Signs Temp 97.8 F 06/29/20 08:00 Pulse 69 06/29/20 08:15 Resp 20 06/29/20 08:00 BP 126/73 06/29/20 08:15 Pulse Ox 93 06/29/20 08:00 Body Mass Index 31.3 Const: Other: Last Vital Signs Temp 97.8 F 06/29/20 08:00 Pulse 69 06/29/20 08:15 Resp 20 06/29/20 08:00 BP 126/73 06/29/20 08:15 Pulse Ox 93 06/29/20 08:00 Body Mass Index 31.3 General: cooperative, comfortable and no acute distress O rientation/consciousness: oriented to person, oriented to place and oriented to time HENMT: Head: Yes normal to inspection Eyes: General: appearance normal, both eyes and all related structures Neck: Neck: Yes normal visual inspection Chest: Chest palpation & inspection: normal inspection of the chest and localized rib tenderness with anteroposterior compression Resp: Effort & Inspection: normal respiratory effort Auscultation: rhonchi (right base) Cardio: Other: Last Vital Signs Temp 97.8 F 06/29/20 08:00 Pulse 69 06/29/20 08:15 Resp 20 06/29/20 08:00 BP 126/73 06/29/20 08:15 Pulse Ox 93 06/29/20 08:00 Body Mass Index 31.3 Jugular venous distension: no JVD Rate: regular rate Rhythm: regular rhythm Heart sounds: S1 normal heart sound present and S2 normal heart sound present GI: Inspection: Yes normal to inspection Back/Spine/Pelvis: Thoracic/Lumbar Spine: thoracic and lumbar spine normal to inspection Skin: General skin exam: no rashes or lesions noted Rashes: no rashes Neuro: General: oriented to person, oriented to place and oriented to time Cranial nerves: Yes Intact sense of smell present Cognition (Neuro): normal cognition Motor exam (neuro): 5/5 motor strength present throughout Extrem: General: Yes normal to inspection Psych: Appearance: grossly normal DS: Data Data Completed and Pending Labs on day of discharge: 06/27/20 20:48 ECG 12 lead EKG Stat EKG Documentation DIRECTED XR chest 1V Stat 06/27/20 20:59 B Type Natriuretic Peptide Stat Basic Metabolic Panel Stat Complete Blood Count Man Dif Stat Hold Lt Blue - Possible Coag Stat Troponin-I High Sensitivity Stat 06/27/20 21:41 CT chest wo con Stat 06/27/20 21:43 Azithromycin [Zithromax] 500 mg PO ONCE ONE cefTRIAXone sodium [Rocephin] 1 gm 0.9 % Sodium Chloride [Ns] 50 ml IV ONCE dexAMETHasone sod phosphate [Decadron] 10 mg IVPUSH ONCE ONE 06/27/20 21:45 0.9 % Sodium Chloride [Ns] 1,000 ml IVCONT 999 mls/hr 06/27/20 22:10 cefTRIAXone sodium [Rocephin] 1 gm .ROUTE .STK-MED ONE 06/27/20 22:55 Lactic Acid Stat SARS-CoV2/FLU/RSV Stat 06/27/20 23:15 Ketorolac Tromethamine [Toradol] 30 mg IVPUSH ONCE ONE 06/28/20 00:30 0.9 % Sodium Chloride [Ns] 1,000 ml IVCONT 999 mls/hr 0.9 % Sodium Chloride [Ns] 1,000 ml IVCONT 999 mls/hr 06/28/20 00:45 Transfer Order Routine 06/28/20 01:53 Transfer Order Routine 06/28/20 05:00 Piperacillin Sodium/Tazobactam [Zosyn] 3.375 gm IV .STK-MED ONE 06/28/20 06:00 Piperacillin Sodium/Tazobactam [Zosyn] 3.375 gm 0.9 % Sodium Chloride [Ns] 50 ml IV Q6H 06/28/20 Breakfast Regular Diet 06/28/20 10:15 Basic Metabolic Panel Routine Complete Blood Count Man Dif Routine 06/28/20 12:42 Flu Vacc [id number](6mos up)/PF [Fluarix Quad [id number]] 0.5 ml IM .ONCE ONE 06/28/20 13:36 Piperacillin Sodium/Tazobactam [Zosyn] 3.375 gm IV .STK-MED ONE 06/28/20 16:23 cefTRIAXone sodium [Rocephin] 2 gm .ROUTE .STK-MED ONE 06/28/20 21:08 Drug Screen Urine Stat 06/29/20 00:18 Acetaminophen [Tylenol] 650 mg PO ONCE ONE 06/29/20 06:25 Basic Metabolic Panel DAILY@0600 Complete Blood Count no Diff DAILY@0600 06/29/20 07:53 Azithromycin [Zithromax] 500 mg IV .STK-MED ONE Laboratory Last Values WBC 13.7 X10*3/uL (4.8-10.8) H 06/29/20 06:25 RBC 3.52 X10*6/uL (4.20-5.50) L 06/29/20 06:25 Hgb 10.6 g/dl (12.0-16.0) L 06/29/20 06:25 Hct 32.4 % (37-47) L 06/29/20 06:25 MCV 92.0 fL (80-98) 06/29/20 06:25 MCH 30.1 pg (27.0-33.0) 06/29/20 06:25 MCHC 32.7 g/dl (31.0-35.0) 06/29/20 06:25 RDW 13.8 % (11.0-16.0) 06/29/20 06:25 Plt Count 227 X10*3/uL (160-400) 06/29/20 06:25 MPV 11.0 fL (9.4-12.3) 06/29/20 06:25 Immature Gran % (Auto) Cancelled 06/28/20 10:15 Neut % (Auto) Cancelled 06/28/20 10:15 Lymph % (Auto) Cancelled 06/28/20 10:15 [place] % (Auto) Cancelled 06/28/20 10:15 Eos % (Auto) Cancelled 06/28/20 10:15 Baso % (Auto) Cancelled 06/28/20 10:15 Lymph # (Auto) Cancelled 06/28/20 10:15 [place] # (Auto) Cancelled 06/28/20 10:15 Eos # (Auto) Cancelled 06/28/20 10:15 Baso # (Auto) Cancelled 06/28/20 10:15 Abs Immat Gran (auto) Cancelled 06/28/20 10:15 Absolute Neuts (auto) Cancelled 06/28/20 10:15 Absolute Nucleated RBC 0.000 X10*3/uL (0.0-0.012) 06/29/20 06:25 Nucleated RBC % (auto) 0.0 /100WBC (0.0-0.2) 06/29/20 06:25 Neutrophils % (Manual) 62 % (45-73) 06/28/20 10:15 Band Neutrophils % 33 % (3-5) H 06/28/20 10:15 Lymphocytes % (Manual) 5 % (20-40) L 06/28/20 10:15 Monocytes % (Manual) 3 % (2-11) 06/27/20 20:59 Eosinophils % (Manual) 2 % (0-4) 06/27/20 20:59 Metamyelocytes % 4 % 06/27/20 20:59 Abs Neuts (Manual) 13.8 X10*3/uL (2.2-7.9) H 06/28/20 10:15 Lymphocytes # (Manual) 0.7 X10*3/uL (0.6-4.8) 06/28/20 10:15 Monocytes # (Manual) 0.3 X10*3/uL (0.0-1.2) 06/27/20 20:59 Eosinophils # (Manual) 0.2 X10*3/UL (0.0-0.8) 06/27/20 20:59 Metamyelocytes # 0.4 X10*3/uL 06/27/20 20:59 Toxic Vacuolation PRESENT 06/27/20 20:59 Platelet Estimate NORMAL (NORMAL) 06/28/20 10:15 Plt Morphology Comment NORMAL 06/28/20 10:15 RBC Morphology NOTED 06/28/20 10:15 Acanthocytes (Spur) 1+ 06/28/20 10:15 Hold Blue Top SEE NOTE 06/27/20 20:59 Sodium 141 mmol/L (135-145) 06/29/20 06:25 Potassium 3.8 mmol/l (3.3-5.1) 06/29/20 06:25 Chloride 108 mmol/L (96-108) 06/29/20 06:25 Carbon Dioxide 26 mmol/L (22-29) 06/29/20 06:25 Anion Gap 11 (12-20) L 06/29/20 06:25 BUN 14 mg/dL (9-16) 06/29/20 06:25 Creatinine 0.64 mg/dL (0.5-1.4) 06/29/20 06:25 Estim Creat Clear Calc 118.8 06/29/20 06:25 Estimated GFR > 60 06/29/20 06:25 Random Glucose 94 mg/dL (60-115) 06/29/20 06:25 Lactic Acid 1.3 mmol/L (0.5-2.0) 06/27/20 22:55 Calcium 8.0 mg/dL (8.4-10.2) L 06/29/20 06:25 Troponin I High Sens < 3.5 ng/L (<3.5-17.0) 06/27/20 20:59 B-Natriuretic Peptide 121 pg/mL (<100) H 06/27/20 20:59 Urine Color DARK YELLOW 06/28/20 01:07 Urine Appearance CLEAR 06/28/20 01:07 Urine pH 6.0 (5.0-8.0) 06/28/20 01:07 Ur Specific [place] 1.025 (1.005-1.025) 06/28/20 01:07 Urine Protein TRACE MG/DL (NEG-TRACE) 06/28/20 01:07 Urine Glucose (UA) NEG MG/DL (NEG) 06/28/20 01:07 Urine Ketones NEG MG/DL (NEG) 06/28/20 01:07 Urine Blood TRACE (NEG) 06/28/20 01:07 Urine Nitrite NEG (NEG) 06/28/20 01:07 Ur Leukocyte Esterase NEG (NEG) 06/28/20 01:07 Urine RBC 0-2 /HPF (0) 06/28/20 01:07 Urine WBC 0 /HPF (0-4) 06/28/20 01:07 Ur Squamous Epith Cells TRACE /LPF 06/28/20 01:07 Urine Bacteria NONE /LPF 06/28/20 01:07 Urine Yeast TRACE /HPF 06/28/20 01:07 Urine Opiates Screen POSITIVE (Not Detect) H 06/28/20 21:08 Ur Barbiturates Screen Not Detected (Not Detect) 06/28/20 21:08 Ur Phencyclidine Scrn Not Detected (Not Detect) 06/28/20 21:08 Ur Amphetamines Screen Not Detected (Not Detect) 06/28/20 21:08 U Benzodiazepines Scrn POSITIVE (Not Detect) H 06/28/20 21:08 Urine Cocaine Screen Not Detected (Not Detect) 06/28/20 21:08 U Marijuana (THC) Screen Not Detected (Not Detect) 06/28/20 21:08 Coronavirus (PCR) NEGATIVE (Negative) 06/27/20 22:55 Influenza Type A (PCR) NEGATIVE (Negative) 06/27/20 22:55 Influenza Type B (PCR) NEGATIVE (Negative) 06/27/20 22:55 RSV RNA Qual (PCR) NEGATIVE (Negative) 06/27/20 22:55 Preliminary micro results at discharge 06/27/20 22:50 Blood Culture - Preliminary Blood - Venous No growth after 24 hours. 06/27/20 22:50 Blood Culture - Preliminary Blood - Venous No growth after 24 hours. Discharge Plan Discharge Anticipated Discharge Date/Time: 06/29/20 10:18 Patient Disposition: Home, Self-Care Referrals: Physician,Unknown [Primary Care Provider] - Discharge Medications: New cefuroxime axetil 500 mg tablet 500 mg PO BID Qty: 10 RF: 0 azithromycin 500 mg tablet 500 mg PO DAILY Qty: 5 RF: 0 Continued lisinopril 10 mg tablet 10 mg PO DAILY RF: 0 levothyroxine [Synthroid] 112 mcg tablet 224 mcg PO DAILY RF: 0 clonazepam 1 mg Tablet 1 mg PO TID RF: 0 gemfibrozil 600 mg Tablet 600 mg PO BID RF: 0 citalopram 40 mg Tablet 40 mg PO DAILY RF: 0 pregabalin 75 mg Capsule 75 mg PO DAILY RF: 0 furosemide 40 mg Tablet 40 mg PO Q OTHER DAY RF: 0 furosemide 40 mg Tablet 60 mg PO Q OTHER DAY RF: 0 Discharge Orders: Discharge Order (Routine); Ordered 06/29/20 Ordered By: Severino Pederson Diet: advance to usual diet Activity on Discharge: As tolerated Discharge Date/Time: 06/29/20 10:51 Visit Report Forms: Patient Portal Discharge page Care Plan Goals: see discharge instructions Health Concerns: pneumonia Plan of Treatment: p.o. antibiotic
[2020-06-29 12:51] LABS: MRSA Nasal PCR POSITIVE (Negative); SA Nasal PCR POSITIVE (Negative)
[2020-07-01 08:03] LABS: HIV AB/AG Nonreactive (Nonreactive); HIV Num 1 0.17 S/CO (0.00-0.99)
[2020-07-02 15:07] LABS: Strep Pneumo Ag urine Not Detected (Not Detected)
[2020-07-02 21:42] LABS: Legionella Ag Urine Not Detected (Not Detected)
== END 2020-06-29 10:51 | disposition home or self-care (01) | DRG 871 ==
LOC: HO.ED 06-28 00:47 → HO.IMC 06-28 07:05
PROVIDERS: Internal Medicine; Nurse Practitioner Family; Admitting Provider Internal Medicine; Emergency Provider Emergency Medicine; Visit Provider Internal Medicine
DX: A41.9 Sepsis, unspecified organism (principal); J18.9 Pneumonia, unspecified organism; F17.210 Nicotine dependence, cigarettes, uncomplicated; Z71.6 Tobacco abuse counseling; Z23 Encounter for immunization; E03.9 Hypothyroidism, unspecified; G62.9 Polyneuropathy, unspecified; Z20.828 Contact with and (suspected) exposure to other viral communicable diseases; Z79.890 Hormone replacement therapy; Z79.899 Other long term (current) drug therapy
CPT/HCPCS: 0241U; 11104; 36415; 71045; 71250; 80048; 80307; 81001; 83605; 83880; 84484; 85007; 85027; 87040; 87070; 87205; 87389; 87449; 87640; 87641; 87899; 90686; 93005; 96361; 96365; 96375; 99285; 99291; J0456; J0696; J1100; J1885; J2543

== ENCOUNTER 2021-05-21 20:28 | Inpatient (IN) | payer MEDICARE, MEDICAID, SELFPAY ==
--- NOTE | ~2021-05-21 | XR_ITS ---
EXAMINATION: XR CHEST CLINICAL INFORMATION: Pneumonia COMPARISON: Chest x-ray June 27, 2020 TECHNIQUE: Frontal portable view of the chest was obtained. 10:44 PM FINDINGS: No significant abnormality is noted involving the heart, lungs, mediastinum, bony thorax or soft tissues. XR/XR chest 1V IMPRESSION: Unremarkable examination.
[2021-05-21 20:45] VITALS: BP 122/72; BP 137/79; PULSE 96; RESP 22; TEMP 37.7; O2SAT 86; O2SAT 95; BMI 28.1
[2021-05-21] MEDS: Azithromycin 500 MG TABLET PO (21:00)
--- NOTE | 2021-05-21 21:21 | ECG_ITS ---
Test Reason : DYSPNEA Blood Pressure : / mmHG Vent. Rate : 090 BPM Atrial Rate : 090 BPM P-R Int : 176 ms QRS Dur : 086 ms QT Int : 366 ms P-R-T Axes : 059 012 066 degrees QTc Int : 447 ms Normal sinus rhythm Nonspecific ST abnormality Abnormal ECG No previous ECGs available Referred By: Louis Zelaya Electronically Signed By:DANTE PATRICIA MD
[2021-05-21] MEDS: Albuterol/Iprat 2.5/0.5MG 3 ML AMPUL.NEB INHALE (21:55)
--- NOTE | 2021-05-21 21:56 | PHA.MEDREC ---
Pharmacy Consult ? Medication Reconciliation Pharmacy has completed the medication reconciliation. Spoke with patient in ED. Patient reports being on both paroxetine for hot flashes and citalopram
[2021-05-21] MEDS: Acetaminophen 325 MG TABLET 650 MG PO (21:57)
[2021-05-21 22:05] LABS: MANUAL DIFF FLAG NO
[2021-05-21 22:06] LABS: Basophils Percent Auto 0.3 % (0-2); Eosinophils Absolute Auto 0.3 X10*3/uL (0.0-0.4); Eosinophils Percent Auto 4.3 % (0-4); Hematocrit 45.2 % (37-47); Imm Gran Abs Auto 0.03 X10*3/uL (0.00-0.03); Imm Gran Pct Auto 0.5 % (0.0-0.4); Lymphocytes Absolute Auto 0.8 X10*3/uL (1.2-4.9); Lymphocytes Percent Auto 12.3 % (20-40); Mean Corpuscular HGB Conc 33.2 g/dl (31.0-35.0); Mean Corpuscular Hemoglobin 29.6 pg (27.0-33.0); Mean Corpuscular Volume 89.3 fL (80-98); Mean Platelet Volume 10.1 fL (9.4-12.3); Monocytes Absolute Auto 0.4 X10*3/uL (0.1-1.2); Monocytes Percent Auto 6.4 % (2-11); Neutrophils Absolute Auto 4.9 X10*3/uL (2.0-8.3); Neutrophils Percent Auto 76.2 % (45-73); Platelet Count 190 X10*3/uL (160-400); Red Blood Count 5.06 X10*6/uL (4.20-5.50); Red Cell Distribution Width 13.1 % (11.0-16.0); White Blood Count 6.4 X10*3/uL (4.8-10.8)
[2021-05-21 22:18] LABS: Lactic Acid 1.5 mmol/L (0.5-2.0)
[2021-05-21 22:27] LABS: Alanine Aminotransferase 11 U/L (0-31); Albumin Level 4.1 g/dL (3.5-5.0); Alkaline Phosphatase 82 U/L (39-117); Anion Gap 10 (12-20); Aspartate Amino Transferase 17 U/L (5-31); B Type Natriuretic Peptide 24 pg/mL (<100); Bilirubin Total < 0.2 mg/dL (0.0-1.0); Blood Urea Nitrogen 8 mg/dL (9-16); Calcium 8.1 mg/dL (8.4-10.2); Carbon Dioxide 35 mmol/L (22-29); Chloride 96 mmol/L (96-108); Creatinine Clr Calc Pharmacy 76.8; Estimated Glomerular Filt Rate > 60; Glucose Random 136 mg/dL (60-115); Lactate Dehydrogenase 233 U/L (122-220); Potassium 3.2 mmol/L (3.3-5.1); Sodium 138 mmol/L (135-145); Total Protein 6.8 g/dL (6.5-8.0); Troponin-I High Sensitivity 4.3 ng/L (<3.5-17.0)
[2021-05-21 22:32] LABS: Prothrombin Time 10.8 SEC (9.9-13.0)
--- NOTE | 2021-05-21 22:33 | ED.SOB ---
HPI - SOB/Dyspnea General Chief Complaint: Dyspnea Stated Complaint: sob Time Seen by Provider: 05/21/21 21:02 Source: patient Mode of arrival: ambulatory Limitations: no limitations History of Present Illness HPI Narrative: Patient presents to ED for shortness of breath, coughing, and fever for the past 2 days. Patient's states no history of asthma or COPD, but patient is a smoker. Patient denies any swelling of lower extremities or calf pain. Related Data Home Medications Medication Instructions Recorded Confirmed citalopram 40 mg tablet 40 mg PO DAILY 06/28/20 05/21/21 clonazepam 1 mg tablet 1 mg PO TID 06/28/20 05/21/21 furosemide 40 mg tablet 40 mg PO Q OTHER DAY 06/28/20 05/21/21 furosemide 40 mg tablet 60 mg PO Q OTHER DAY 06/28/20 05/21/21 gemfibrozil 600 mg tablet 600 mg PO BID 06/28/20 05/21/21 levothyroxine 112 mcg tablet 224 mcg PO DAILY 06/28/20 05/21/21 (Synthroid) lisinopril 10 mg tablet 10 mg PO DAILY 06/28/20 05/21/21 pregabalin 75 mg capsule 75 mg PO DAILY 06/28/20 05/21/21 paroxetine HCl 10 mg tablet 10 mg PO DAILY 05/21/21 05/21/21 Allergies Allergy/AdvReac Type Severity Reaction Status Date / Time No Known Allergies Allergy Verified 06/28/20 07:48 Review of Systems Review of Systems: Yes all other systems are reviewed and are negative Constitutional: Constitutional: Reports as per HPI, Reports no additional constitutional complaints and Reports fever(s) Eyes: Eyes: Reports as per HPI and Reports no additional eye complaints ENT: Reports system reviewed and no additional complaints, except as documented and Reports as per HPI Cardiovascular: Cardiovascular: Reports as per HPI, Reports no additional cardiovascular complaints and Reports dyspnea Respiratory: Respiratory: Reports as per HPI, Reports no additional respiratory complaints, Reports cough and Reports dyspnea Gastrointestinal: Gastrointestinal: Reports as per HPI and Reports no additional gastrointestinal complaints Genitourinary: Genitourinary: Reports no additional female genitourinary complaints and Reports as per HPI Musculoskeletal: Musculoskeletal: Reports no additional musculoskeletal complaints and Reports as per HPI Integumentary/Breasts: Skin/Breast: Reports system reviewed and no additional complaints, except as docu and Reports as per HPI Neurologic: Reports system reviewed and no additional complaints, except as documented and Reports as per HPI Psychiatric: Psychiatric: Reports no additional psychiatric complaints and Reports as per HPI [facility] Past Medical History Medical History Edema Fluid retention HTN (hypertension) Social History Social History Household Members: Spouse and Other Household Members Other:: Grandchildren Housing: Apartment Do you presently have visiting nurse or other home services: No Alcohol intake: never Patient Tobacco Use Status: Current everyday Tobacco user Cigarettes Per Day: 20 Use of substances other than those prescribed or required for medical reasons: No Advance Directives: No Patient : No Physical Exam Vital Signs: Vital Signs: Last Vital Signs Temp 99.8 F 05/21/21 23:31 Pulse 95 05/21/21 23:31 Resp 16 05/21/21 23:31 BP 116/50 L 05/21/21 23:31 Pulse Ox 98 05/21/21 23:31 Body Mass Index 28.1 Const: General: cooperative, healthy appearing, comfortable, no acute distress, well developed, alert, awake and Physically active Orientation/consciousness: patient oriented x3 HENMT: Head: Yes normal to inspection, Yes No palpable skull fracture present, Yes normocephalic, Yes atraumatic and No abrasion Ears: hearing grossly normal bilaterally and external ears normal General nose exam: Normal external nose present and Normal nares present Eyes: General: appearance normal, both eyes and all related structures Neck: Neck: Yes normal visual inspection, Yes full ROM, Yes no lymphadenopathy, Yes no meningeal signs, Yes trachea midline, Yes supple and No tender Chest: Chest palpation & inspection: normal inspection of the chest and normal palpation of entire chest wall Resp: Effort & Inspection: normal respiratory effort and able to speak in complete sentences Auscultation: wheezes (audible) Cardio: Jugular venous distension: no JVD Heart sounds: S1 normal heart sound present and S2 normal heart sound present GI: Inspection: Yes normal to inspection and No abdominal wall ecchymosis Palpation (GI): Soft to palpation, not firm, nontender, no guarding and not rigid : General: No CVA tenderness and Yes no CVA tenderness Back/Spine/Pelvis: Back: no CVA tenderness, No CVA tenderness and No back tenderness Skin: General skin exam: no rashes or lesions noted and elasticity normal Neuro: General: patient oriented x3, gait normal, no meningeal signs and CN's II-XI intact bilaterally Cranial nerves: Yes CN's II-XII intact bilaterally Extrem: Other: Lower extremities negative for swelling, pitting edema, calf tenderness General: Yes normal to inspection and Yes full ROM Psych: Appearance: grossly normal, well kempt and not disheveled Course Course Course Narrative: Patient will have medical evaluation including troponin, EKG, and chest x-ray. Albuterol inhaler ordered. Patient placed on oxygen. Reevaluation(s) Reevaluation #1: Patient placed on oxygen. Albuterol nebulizer ordered. Troponin and BNP negative. Pending COVID swab and chest x-ray. Time: 22:00 Reevaluation #2: Patient D-dimer negative. Troponin negative. EKG negative for STEMI. Patient to be admitted for hypoxia due to RSV. Patient given albuterol Solu-Medrol. D-dimer negative. Patient states she feels better. Time: 23:54 MDM - SOB/Dyspnea MDM Narrative Medical decision making narrative: RSV hypoxia Lab Data Result diagrams: 05/21/21 22:00 05/21/21 22:00 Labs: Lab Results 05/21/21 05/21/21 05/21/21 Range/Units 21:45 22:00 22:00 WBC 6.4 (4.8-10.8) X10*3/uL RBC 5.06 D (4.20-5.50) X10*6/uL Hgb 15.0 D (12.0-16.0) g/dl Hct 45.2 D (37-47) % MCV 89.3 (80-98) fL MCH 29.6 (27.0-33.0) pg MCHC 33.2 (31.0-35.0) g/dl RDW 13.1 (11.0-16.0) % Plt Count 190 (160-400) X10*3/uL MPV 10.1 (9.4-12.3) fL Immature Gran % (Auto) 0.5 H (0.0-0.4) % Neut % (Auto) 76.2 H (45-73) % Lymph % (Auto) 12.3 L (20-40) % [place] % (Auto) 6.4 (2-11) % Eos % (Auto) 4.3 H (0-4) % Baso % (Auto) 0.3 (0-2) % Lymph # (Auto) 0.8 L (1.2-4.9) X10*3/uL [place] # (Auto) 0.4 (0.1-1.2) X10*3/uL Eos # (Auto) 0.3 (0.0-0.4) X10*3/uL Baso # (Auto) 0.0 (0.0-0.2) X10*3/uL Abs Immat Gran (auto) 0.03 (0.00-0.03) X10*3/uL Absolute Neuts (auto) 4.9 (2.0-8.3) X10*3/uL Absolute Nucleated RBC 0.000 (0.0-0.012) X10*3/uL Nucleated RBC % (auto) 0.0 (0.0-0.2) /100WBC PT 10.8 (9.9-13.0) SEC INR 1.0 (0.9-1.1) APTT 40.0 H (24.1-38.0) SEC D-Dimer < 200 NG/ML Sodium (135-145) mmol/L Potassium (3.3-5.1) mmol/L Chloride (96-108) mmol/L Carbon Dioxide (22-29) mmol/L Anion Gap (12-20) BUN (9-16) mg/dL Creatinine (0.5-1.4) mg/dL Estim Creat Clear Calc Estimated GFR Random Glucose (60-115) mg/dL Lactic Acid (0.5-2.0) mmol/L Calcium (8.4-10.2) mg/dL Ferritin (10-250) ng/mL Total Bilirubin (0.0-1.0) mg/dL AST (5-31) U/L ALT (0-31) U/L Alkaline Phosphatase (39-117) U/L Lactate Dehydrogenase (122-220) U/L Troponin I High Sens (<3.5-17.0) ng/L B-Natriuretic Peptide (<100) pg/mL Total Protein (6.5-8.0) g/dL Albumin (3.5-5.0) g/dL Procalcitonin ng/mL Coronavirus (PCR) NEGATIVE (Negative) Influenza Type A (PCR) NEGATIVE (Negative) Influenza Type B (PCR) NEGATIVE (Negative) RSV RNA Qual (PCR) POSITIVE A (Negative) 05/21/21 05/21/21 05/21/21 Range/Units 22:00 22:00 22:00 WBC (4.8-10.8) X10*3/uL RBC (4.20-5.50) X10*6/uL Hgb (12.0-16.0) g/dl Hct (37-47) % MCV (80-98) fL MCH (27.0-33.0) pg MCHC (31.0-35.0) g/dl RDW (11.0-16.0) % Plt Count (160-400) X10*3/uL MPV (9.4-12.3) fL Immature Gran % (Auto) (0.0-0.4) % Neut % (Auto) (45-73) % Lymph % (Auto) (20-40) % [place] % (Auto) (2-11) % Eos % (Auto) (0-4) % Baso % (Auto) (0-2) % Lymph # (Auto) (1.2-4.9) X10*3/uL [place] # (Auto) (0.1-1.2) X10*3/uL Eos # (Auto) (0.0-0.4) X10*3/uL Baso # (Auto) (0.0-0.2) X10*3/uL Abs Immat Gran (auto) (0.00-0.03) X10*3/uL Absolute Neuts (auto) (2.0-8.3) X10*3/uL Absolute Nucleated RBC (0.0-0.012) X10*3/uL Nucleated RBC % (auto) (0.0-0.2) /100WBC PT (9.9-13.0) SEC INR (0.9-1.1) APTT (24.1-38.0) SEC D-Dimer NG/ML Sodium 138 (135-145) mmol/L Potassium 3.2 L (3.3-5.1) mmol/L Chloride 96 (96-108) mmol/L Carbon Dioxide 35 H (22-29) mmol/L Anion Gap 10 L (12-20) BUN 8 L (9-16) mg/dL Creatinine 0.93 (0.5-1.4) mg/dL Estim Creat Clear Calc 76.8 Estimated GFR > 60 Random Glucose 136 H (60-115) mg/dL Lactic Acid (0.5-2.0) mmol/L Calcium 8.1 L (8.4-10.2) mg/dL Ferritin 64 (10-250) ng/mL Total Bilirubin < 0.2 (0.0-1.0) mg/dL AST 17 (5-31) U/L ALT 11 (0-31) U/L Alkaline Phosphatase 82 (39-117) U/L Lactate Dehydrogenase 233 H (122-220) U/L Troponin I High Sens 4.3 (<3.5-17.0) ng/L B-Natriuretic Peptide 24 (<100) pg/mL Total Protein 6.8 (6.5-8.0) g/dL Albumin 4.1 (3.5-5.0) g/dL Procalcitonin 0.03 ng/mL Coronavirus (PCR) (Negative) Influenza Type A (PCR) (Negative) Influenza Type B (PCR) (Negative) RSV RNA Qual (PCR) (Negative) 05/21/21 Range/Units 22:00 WBC (4.8-10.8) X10*3/uL RBC (4.20-5.50) X10*6/uL Hgb (12.0-16.0) g/dl Hct (37-47) % MCV (80-98) fL MCH (27.0-33.0) pg MCHC (31.0-35.0) g/dl RDW (11.0-16.0) % Plt Count (160-400) X10*3/uL MPV (9.4-12.3) fL Immature Gran % (Auto) (0.0-0.4) % Neut % (Auto) (45-73) % Lymph % (Auto) (20-40) % [place] % (Auto) (2-11) % Eos % (Auto) (0-4) % Baso % (Auto) (0-2) % Lymph # (Auto) (1.2-4.9) X10*3/uL [place] # (Auto) (0.1-1.2) X10*3/uL Eos # (Auto) (0.0-0.4) X10*3/uL Baso # (Auto) (0.0-0.2) X10*3/uL Abs Immat Gran (auto) (0.00-0.03) X10*3/uL Absolute Neuts (auto) (2.0-8.3) X10*3/uL Absolute Nucleated RBC (0.0-0.012) X10*3/uL Nucleated RBC % (auto) (0.0-0.2) /100WBC PT (9.9-13.0) SEC INR (0.9-1.1) APTT (24.1-38.0) SEC D-Dimer NG/ML Sodium (135-145) mmol/L Potassium (3.3-5.1) mmol/L Chloride (96-108) mmol/L Carbon Dioxide (22-29) mmol/L Anion Gap (12-20) BUN (9-16) mg/dL Creatinine (0.5-1.4) mg/dL Estim Creat Clear Calc Estimated GFR Random Glucose (60-115) mg/dL Lactic Acid 1.5 (0.5-2.0) mmol/L Calcium (8.4-10.2) mg/dL Ferritin (10-250) ng/mL Total Bilirubin (0.0-1.0) mg/dL AST (5-31) U/L ALT (0-31) U/L Alkaline Phosphatase (39-117) U/L Lactate Dehydrogenase (122-220) U/L Troponin I High Sens (<3.5-17.0) ng/L B-Natriuretic Peptide (<100) pg/mL Total Protein (6.5-8.0) g/dL Albumin (3.5-5.0) g/dL Procalcitonin ng/mL Coronavirus (PCR) (Negative) Influenza Type A (PCR) (Negative) Influenza Type B (PCR) (Negative) RSV RNA Qual (PCR) (Negative) ECG Data Interpretation: Normal sinus rhythm. Normal EKG. Ventricular rate 90. Pr interval 176. QRS 86. QTC 447. Critical Care Time Critical Care Time Critical Care Time: Yes Total Critical Care Time: 60 Attestation: RSV hypoxia. Labs ordered. Patient placed on oxygen. Albuterol prednisone ordered. Case discussed with hospitalist. Discharge Plan Discharge Clinical Impression: RSV (respiratory syncytial virus infection) Patient Disposition: Admitted As Inpatient
[2021-05-21 22:44] LABS: Influenza A PCR NEGATIVE (Negative); Influenza B PCR NEGATIVE (Negative); Resp Syncy Virus RNA Qual PCR POSITIVE (Negative); SARS COV2 PCR INHOUSE NEGATIVE (Negative)
[2021-05-21 22:45] LABS: Procalcitonin 0.03 ng/mL
[2021-05-21 22:46] LABS: Ferritin 64 ng/mL (10-250)
[2021-05-21 23:01] LABS: D Dimer < 200 NG/ML
[2021-05-21] MEDS: methylPREDNISolone Sod Succ 125 MG/2 ML VIAL IVPUSH (23:30)
[2021-05-21 23:31] VITALS: BP 116/50; PULSE 95; RESP 16; TEMP 37.7; O2SAT 98
[2021-05-22] VITALS (17 sets, daily range): BP systolic 101–128; BP diastolic 43–72; PULSE 71–93; RESP 12–20; TEMP 36.2–36.9; O2SAT 80–97
--- NOTE | 2021-05-22 01:04 | PM.IMHP ---
History of Present Illness Date of Service: 05/22/21 Chief Complaint: Shortness of breath 51-year-old female with a past medical history of hypertension, hypothyroidism, peripheral edema, tobacco dependence, anxiety, depression presented to the hospital with a chief complaint of shortness of breath. Patient reports that over the past few days she has been having cough with yellowish sputum production, complains of shortness of breath even at rest; and today she could not breathe hence called EMS and came to the hospital. Denies any chest pain palpitations lightheadedness or dizziness. Denies any recent travel or sick contacts. Patient reports that she smokes about a pack of cigarettes but over the past few days she is not smoking October. Also mentions he has decreased appetite and complains of generalized weakness. Denies any GI or symptoms. Review of all other systems is negative except mentioned above ER course: Per ER team patient's EKG was nonischemic; exam noted to have wheezing; ER team reported the EMS noted the patient was saturating in 70s and subsequently placed on 6 L of nasal cannula and brought to the hospital. Subsequently in the ER patient was saturating in 80s on room air and was placed on supplemental oxygen. Patient was given nebulizations, steroids; on labs noted to have RSV positive; COVID-19 negative; CT scan showed Right lower lobe pneumonia and emphysema PMFSH Medical History Edema Fluid retention HTN (hypertension) Pertinent family history: Reviewed Social History Household Members: Spouse and Other Household Members Other:: Grandchildren Housing: Apartment Do you presently have visiting nurse or other home services: No Alcohol intake: never Patient Tobacco Use Status: Current everyday Tobacco user Cigarettes Per Day: 20 Use of substances other than those prescribed or required for medical reasons: No Advance Directives: No Patient : No Meds Allergies Allergy/AdvReac Type Severity Reaction Status Date / Time No Known Allergies Allergy Verified 06/28/20 07:48 Active Medications: Current Medications Acetaminophen (Acetaminophen 325 Mg Tablet) 650 mg PO Q6H PRN PRN Reason: Pain, Mild (Pain Scale 1-3) Albuterol/Ipratropium (Albuterol/Iprat 2.5/0.5mg 3 Ml Ampul.Neb) 3 ml INHALE RQ4H WHILE AWAKE [facility] Azithromycin (Azithromycin 500 Mg Tablet) 500 mg PO Q24H [facility] Benzonatate (Benzonatate 100 Mg Capsule) 100 mg PO TID PRN PRN Reason: Cough Clonazepam (Clonazepam 1 Mg Tablet) 1 mg PO TID [facility] Enoxaparin Sodium (Enoxaparin Sodium 40 Mg/0.4 Ml Syringe) 40 mg SUBCUT Q24H ADAM Famotidine (Famotidine 20 Mg Tablet) 20 mg PO BID ADAM Furosemide (Furosemide 40 Mg Tablet) 40 mg PO Q OTHER DAY ADAM; Protocol Furosemide (Furosemide 20 Mg Tablet) 60 mg PO Q OTHER DAY ADAM; Protocol Gemfibrozil (Gemfibrozil 600 Mg Tablet) 600 mg PO BID [facility] Levothyroxine Sodium (Levothyroxine Sodium 112 Mcg Tablet) 224 mcg PO DAILY [facility] Lisinopril (Lisinopril 10 Mg Tablet) 10 mg PO DAILY ADAM; Protocol Melatonin (Melatonin 3 Mg Tablet) 6 mg PO BEDTIME PRN PRN Reason: Insomnia Methylprednisolone Sodium Succinate (Methylprednisolone Sod Succ 40 Mg/Ml Vial) 40 mg IVPUSH Q6H [facility] Non-Formulary Medication (Citalopram) 40 mg PO DAILY [facility] Paroxetine HCl (Paroxetine Hcl 10 Mg Tablet) 10 mg PO DAILY [facility] Pharmacy Consult (Consult Rx Perform Med Rec) 1 each MISCELLANE ONCE PRN PRN Reason: Consult order Pregabalin (Pregabalin 75 Mg Capsule) 75 mg PO DAILY [facility] Senna (Sennosides 8.6 Mg Tablet) 17.2 mg PO BEDTIME PRN PRN Reason: Constipation Sodium Chloride (0.9 % Sodium Chloride Flush 3 Ml Syringe) 3 ml IVFLUSH QSHIFT [facility] Home Medications Medication Instructions Recorded Confirmed Last Taken Type citalopram 40 mg tablet 40 mg PO DAILY 06/28/20 05/21/21 05/21/21 History clonazepam 1 mg tablet 1 mg PO TID 06/28/20 05/21/21 05/21/21 History furosemide 40 mg tablet 40 mg PO Q OTHER DAY 06/28/20 05/21/21 05/21/21 History furosemide 40 mg tablet 60 mg PO Q OTHER DAY 06/28/20 05/21/21 05/20/21 History gemfibrozil 600 mg tablet 600 mg PO BID 06/28/20 05/21/21 05/21/21 History levothyroxine 112 mcg tablet 224 mcg PO DAILY 06/28/20 05/21/21 05/21/21 History (Synthroid) lisinopril 10 mg tablet 10 mg PO DAILY 06/28/20 05/21/21 05/21/21 History pregabalin 75 mg capsule 75 mg PO DAILY 06/28/20 05/21/21 05/21/21 History paroxetine HCl 10 mg tablet 10 mg PO DAILY 05/21/21 05/21/21 05/21/21 History Physical Exam Vital Signs and Narrative: Vital Signs: Last Vital Signs Temp 99.8 F 05/21/21 23:31 Pulse 95 05/21/21 23:31 Resp 16 05/21/21 23:31 BP 116/50 L 05/21/21 23:31 Pulse Ox 98 05/21/21 23:31 Body Mass Index 28.1 Results Labs CBC and Chem 7: 05/21/21 22:00 05/21/21 22:00 Labs: Laboratory Results - last 24 hr 05/21/21 05/21/21 05/21/21 21:45 22:00 22:00 MCV 89.3 MCH 29.6 MCHC 33.2 RDW 13.1 Plt Count 190 MPV 10.1 Immature Gran % (Auto) 0.5 H Neut % (Auto) 76.2 H Lymph % (Auto) 12.3 L [place] % (Auto) 6.4 Eos % (Auto) 4.3 H Baso % (Auto) 0.3 Lymph # (Auto) 0.8 L [place] # (Auto) 0.4 Eos # (Auto) 0.3 Baso # (Auto) 0.0 Abs Immat Gran (auto) 0.03 Absolute Neuts (auto) 4.9 Absolute Nucleated RBC 0.000 Nucleated RBC % (auto) 0.0 PT 10.8 INR 1.0 APTT 40.0 H D-Dimer < 200 Anion Gap Estim Creat Clear Calc Estimated GFR Random Glucose Lactic Acid Calcium Ferritin Total Bilirubin AST ALT Alkaline Phosphatase Lactate Dehydrogenase Troponin I High Sens B-Natriuretic Peptide Total Protein Albumin Procalcitonin Coronavirus (PCR) NEGATIVE Influenza Type A (PCR) NEGATIVE Influenza Type B (PCR) NEGATIVE RSV RNA Qual (PCR) POSITIVE A 05/21/21 05/21/21 05/21/21 22:00 22:00 22:00 MCV MCH MCHC RDW Plt Count MPV Immature Gran % (Auto) Neut % (Auto) Lymph % (Auto) [place] % (Auto) Eos % (Auto) Baso % (Auto) Lymph # (Auto) [place] # (Auto) Eos # (Auto) Baso # (Auto) Abs Immat Gran (auto) Absolute Neuts (auto) Absolute Nucleated RBC Nucleated RBC % (auto) PT INR APTT D-Dimer Anion Gap 10 L Estim Creat Clear Calc 76.8 Estimated GFR > 60 Random Glucose 136 H Lactic Acid Calcium 8.1 L Ferritin 64 Total Bilirubin < 0.2 AST 17 ALT 11 Alkaline Phosphatase 82 Lactate Dehydrogenase 233 H Troponin I High Sens 4.3 B-Natriuretic Peptide 24 Total Protein 6.8 Albumin 4.1 Procalcitonin 0.03 Coronavirus (PCR) Influenza Type A (PCR) Influenza Type B (PCR) RSV RNA Qual (PCR) 05/21/21 22:00 MCV MCH MCHC RDW Plt Count MPV Immature Gran % (Auto) Neut % (Auto) Lymph % (Auto) [place] % (Auto) Eos % (Auto) Baso % (Auto) Lymph # (Auto) [place] # (Auto) Eos # (Auto) Baso # (Auto) Abs Immat Gran (auto) Absolute Neuts (auto) Absolute Nucleated RBC Nucleated RBC % (auto) PT INR APTT D-Dimer Anion Gap Estim Creat Clear Calc Estimated GFR Random Glucose Lactic Acid 1.5 Calcium Ferritin Total Bilirubin AST ALT Alkaline Phosphatase Lactate Dehydrogenase Troponin I High Sens B-Natriuretic Peptide Total Protein Albumin Procalcitonin Coronavirus (PCR) Influenza Type A (PCR) Influenza Type B (PCR) RSV RNA Qual (PCR) Imaging Radiologist's Impressions: Impressions Chest X-Ray 05/21/21 22:39 IMPRESSION: Unremarkable examination. Assessment and Plan (1) RSV (respiratory syncytial virus infection): Status: Acute 51-year-old female with a past medical history of hypertension, hypothyroidism, peripheral edema, tobacco dependence, anxiety, depression presented to the hospital with a chief complaint of shortness of breath. Noted to have pneumonia/RSVinfection/reactive airways. Admitted for further management. Acute hypoxic respiratory failure: In the setting of pneumonia/reactive airway/RSV infection Patient breathing comfortably on supplemental oxygen. Reactive airway disease: Patient has undiagnosed COPD. CT chest showed emphysema. Patient has chronic smoking history since age of 9. Continue Solu-Medrol 40 mg IV Duo[facility] Pulmonology consult Pneumonia/RSV infection: Continue ceftriaxone azithromycin. Id consult. History of hypothyroidism: Continue home levothyroxine History of peripheral edema: Hold home diuretics for now. History of tobacco dependence: Counseled on smoking cessation. History of anxiety/depression: Continue home paroxetine/clonazepam/citalopram History of peripheral neuropathy: Continue home pregabalin DVT prophylaxis: Lovenox Code status: Full code Quality Stroke Does the patient have a stroke diagnosis?: No VTE Prior VTE?: No VTE Risk Level:: Medical - moderate - high VTE Device Contraindication: Treatment Not Indicated VTE Drug Contraindication: N/A - Med Ordered
--- NOTE | 2021-05-22 01:40 | PC.NURSE ---
PHLEBOTOMY IN ROOM FOR LABS.
[2021-05-22 01:51] LABS: Venous Blood Gas Refer to POC result
[2021-05-22 01:52] LABS: VBG HCO3 35 mmol/L (22-26); VBG pCO2 60 mmHg; VBG pH 7.37 (7.32-7.43); VBG pO2 63 mmHg
[2021-05-22] MEDS: cefTRIAXone sodium 1 GM in 0.9 % Sodium Chloride 50 ML IV (02:00)
[2021-05-22] MEDS: Enoxaparin Sodium 40 MG/0.4 ML SYRINGE SUBCUT (02:00)
--- NOTE | 2021-05-22 04:33 | PC.NURSE ---
PT DRESSED IN HER CLOTHES, UP WALKING AROUND WITHOUT A MASK STATING I NEED TO USE THE PHONE OUTSIDE . PT REMINDED TO WEAR HER MASK . PT REMINDED SHE IS GETTING ADMITTED AND AWAITING FOR ROOM ASSIGNMENT. PT ALERT, PT CONTINUE TO PULL OFF HER OXYGEN AND GETS DRESSED.
[2021-05-22] MEDS: Levothyroxine Sodium 112 MCG TABLET 224 MCG PO (04:59)
[2021-05-22] MEDS: methylPREDNISolone Sod Succ 40 MG/ML VIAL IVPUSH ×3 (04:59→17:45)
--- NOTE | 2021-05-22 05:18 | PC.NURSE ---
VS OBTAINED. PT UP AND PACING AROUND ROOM, PT CONTINUE TO REMOVED LEADS AND GOWN. PT EDUCATED ON BEING ADMITTED. PT'S PO IS 79% ON RA. PT'S OXYGEN REPLACED. PT EDUCATED ON OXYGEN LEVEL AND THE NEED TO LEAVE NC ON. PT REMAINS ALERT, RESPIRATIONS IS NON-LABORED AND NC ON PT. PT AWAITING FOR ROOM ASSIGNMENT. PT MEDICATED PER EMAR.
--- NOTE | 2021-05-22 06:58 | PC.NURSE ---
REPORT GIVEN TO ON-COMING NURSE.
--- NOTE | 2021-05-22 07:35 | PC.NURSE ---
Assumed care of patient. Pt is resting comfortably in her room and does not appear to be in any respiratory distress. Pt remains on oxygen via NC at 4lpm. Pt placed on cardiac monitoring. Pt given breakfast and is tolerating PO intake.
[2021-05-22] MEDS: gemfibroziL 600 MG TABLET PO ×2 (07:51→15:35)
--- NOTE | 2021-05-22 08:15 | PC.NURSE ---
Called report to Whit in the isolation unit. Called respiratory to come do the duoneb prior to being transported
[2021-05-22] MEDS: lisinopriL 10 MG TABLET PO (08:24)
[2021-05-22] MEDS: clonazePAM 1 MG TABLET PO ×3 (08:24→21:36)
[2021-05-22] MEDS: Famotidine 20 MG TABLET PO ×2 (08:24→21:36)
[2021-05-22] MEDS: PARoxetine HCL 10 MG TABLET PO (08:24)
[2021-05-22] MEDS: Escitalopram Oxalate 20 MG TABLET PO (08:25)
[2021-05-22 08:28] LABS: MANUAL DIFF FLAG NO
[2021-05-22] MEDS: Albuterol/Iprat 2.5/0.5MG 3 ML AMPUL.NEB INHALE ×4 (08:28→19:59)
[2021-05-22 08:29] LABS: Basophils Percent Auto 0.1 % (0-2); Eosinophils Percent Auto 0.1 % (0-4); Hematocrit 45.5 % (37-47); Hemoglobin 14.9 g/dl (12.0-16.0); Imm Gran Abs Auto 0.03 X10*3/uL (0.00-0.03); Imm Gran Pct Auto 0.4 % (0.0-0.4); Lymphocytes Absolute Auto 0.7 X10*3/uL (1.2-4.9); Lymphocytes Percent Auto 9.8 % (20-40); Mean Corpuscular HGB Conc 32.7 g/dl (31.0-35.0); Mean Corpuscular Hemoglobin 29.4 pg (27.0-33.0); Mean Corpuscular Volume 89.9 fL (80-98); Mean Platelet Volume 10.4 fL (9.4-12.3); Monocytes Absolute Auto 0.1 X10*3/uL (0.1-1.2); Neutrophils Absolute Auto 6.2 X10*3/uL (2.0-8.3); Neutrophils Percent Auto 88.6 % (45-73); Platelet Count 204 X10*3/uL (160-400); Red Blood Count 5.06 X10*6/uL (4.20-5.50)
[2021-05-22 08:47] LABS: Anion Gap 11 (12-20); Blood Urea Nitrogen 8 mg/dL (9-16); Calcium 8.3 mg/dL (8.4-10.2); Carbon Dioxide 35 mmol/L (22-29); Chloride 96 mmol/L (96-108); Creatinine Clr Calc Pharmacy 85.1; Estimated Glomerular Filt Rate > 60; Glucose Random 168 mg/dL (60-115); Potassium 3.6 mmol/L (3.3-5.1); Sodium 138 mmol/L (135-145)
--- NOTE | 2021-05-22 10:05 | PM.CNPUL ---
History of Present Illness History of Present Illness Consult date: 05/22/21 Reason for consult: dyspnea and cough Chief complaint: COPD exacerbation Narrative: This 51 years old female is being seen for pulmonary consult this morning. She has history of cough with shortness of breath for a few days. Yesterday it became quite severe when she was doing some physical work. Denies any chest pain. Denies fever or chills. She has been coughing up with intermittent yellowish mucus. After being evaluated in the emergency room she is the admitted for further care. There is evidence of or SV respiratory virus infection. But no definite pneumonia. Patient is a smoker of 1 pack a day for her adult life, but she claims that she has not been diagnosed to have COPD so for. She is not on any bronchodilator therapy. Her past history includes hypertension, hypothyroidism, anxiety, depression, , nonspecific edema around the ankle. She had a CT scan of the chest in June 28, which did show an infiltrate in the right lower lobe. Review of Systems Review of Systems: Yes all other systems are reviewed and are negative Constitutional: Constitutional: Reports fatigue (Mild) Eyes: Eyes: Reports no additional eye complaints ENT: Reports system reviewed and no additional complaints, except as documented Cardiovascular: Cardiovascular: Reports no additional cardiovascular complaints Respiratory: Respiratory: Reports as per HPI Gastrointestinal: Gastrointestinal: Denies nausea and Denies vomiting Genitourinary: Genitourinary: Reports no additional female genitourinary complaints Musculoskeletal: Musculoskeletal: Reports no additional musculoskeletal complaints Integumentary/Breasts: Skin/Breast: Reports system reviewed and no additional complaints, except as docu Neurologic: Reports system reviewed and no additional complaints, except as documented Endocrine: Endocrine: Reports fatigue (Mild) [facility] Past Medical History Medical History COPD exacerbation Edema Fluid retention HTN (hypertension) Smoker Social History Social History Household Members: Spouse and Other Household Members Other:: Grandchildren Housing: Apartment Do you presently have visiting nurse or other home services: No Alcohol intake: never Patient Tobacco Use Status: Current everyday Tobacco user Cigarettes Per Day: 20 Use of substances other than those prescribed or required for medical reasons: No Advance Directives: No Patient : No Meds Allergies Allergy/AdvReac Type Severity Reaction Status Date / Time No Known Allergies Allergy Verified 06/28/20 07:48 Active Medications: Current Medications Acetaminophen (Acetaminophen 325 Mg Tablet) 650 mg PO Q6H PRN PRN Reason: Pain, Mild (Pain Scale 1-3) Albuterol/Ipratropium (Albuterol/Iprat 2.5/0.5mg 3 Ml Ampul.Neb) 3 ml INHALE RQ4H WHILE AWAKE [facility] Last Admin: 05/22/21 08:28 Dose: 3 ml Documented by: Azithromycin (Azithromycin 500 Mg Tablet) 500 mg PO BEDTIME [facility] Last Admin: 05/21/21 21:00 Dose: 500 mg Documented by: Benzonatate (Benzonatate 100 Mg Capsule) 100 mg PO TID PRN PRN Reason: Cough Clonazepam (Clonazepam 1 Mg Tablet) 1 mg PO TID [facility] Last Admin: 05/22/21 08:24 Dose: 1 mg Documented by: Enoxaparin Sodium (Enoxaparin Sodium 40 Mg/0.4 Ml Syringe) 40 mg SUBCUT Q24H [facility] Last Admin: 05/22/21 02:00 Dose: 40 mg Documented by: Escitalopram Oxalate (Escitalopram Oxalate 20 Mg Tablet) 20 mg PO DAILY [facility] Last Admin: 05/22/21 08:25 Dose: 20 mg Documented by: Famotidine (Famotidine 20 Mg Tablet) 20 mg PO BID [facility] Last Admin: 05/22/21 08:24 Dose: 20 mg Documented by: Gemfibrozil (Gemfibrozil 600 Mg Tablet) 600 mg PO BIDAC [facility] Last Admin: 05/22/21 07:51 Dose: 600 mg Documented by: Ceftriaxone Sodium 1 gm/ (Sodium Chloride) 50 mls @ 100 mls/hr IV Q24H [facility] Levothyroxine Sodium (Levothyroxine Sodium 112 Mcg Tablet) 224 mcg PO DAILY@0630 [facility] Last Admin: 05/22/21 04:59 Dose: 224 mcg Documented by: Lisinopril (Lisinopril 10 Mg Tablet) 10 mg PO DAILY [facility]; Protocol Last Admin: 05/22/21 08:24 Dose: 10 mg Documented by: Melatonin (Melatonin 3 Mg Tablet) 6 mg PO BEDTIME PRN PRN Reason: Insomnia Methylprednisolone Sodium Succinate (Methylprednisolone Sod Succ 40 Mg/Ml Vial) 40 mg IVPUSH Q6H [facility] Last Admin: 05/22/21 04:59 Dose: 40 mg Documented by: Paroxetine HCl (Paroxetine Hcl 10 Mg Tablet) 10 mg PO DAILY [facility] Last Admin: 05/22/21 08:24 Dose: 10 mg Documented by: Pharmacy Consult (Consult Rx Perform Med Rec) 1 each MISCELLANE ONCE PRN PRN Reason: Consult order Pregabalin (Pregabalin 75 Mg Capsule) 75 mg PO DAILY [facility] Senna (Sennosides 8.6 Mg Tablet) 17.2 mg PO BEDTIME PRN PRN Reason: Constipation Sodium Chloride (0.9 % Sodium Chloride Flush 3 Ml Syringe) 3 ml IVFLUSH QSHIFT [facility] Last Admin: 05/22/21 07:37 Dose: Not Given Documented by: Home Medications Medication Instructions Recorded Confirmed Last Taken Type citalopram 40 mg tablet 40 mg PO DAILY 06/28/20 05/21/21 05/21/21 History clonazepam 1 mg tablet 1 mg PO TID 06/28/20 05/21/21 05/21/21 History furosemide 40 mg tablet 40 mg PO Q OTHER DAY 06/28/20 05/21/21 05/21/21 History furosemide 40 mg tablet 60 mg PO Q OTHER DAY 06/28/20 05/21/21 05/20/21 History gemfibrozil 600 mg tablet 600 mg PO BID 06/28/20 05/21/21 05/21/21 History levothyroxine 112 mcg tablet 224 mcg PO DAILY 06/28/20 05/21/21 05/21/21 History (Synthroid) lisinopril 10 mg tablet 10 mg PO DAILY 06/28/20 05/21/21 05/21/21 History pregabalin 75 mg capsule 75 mg PO DAILY 06/28/20 05/21/21 05/21/21 History paroxetine HCl 10 mg tablet 10 mg PO DAILY 05/21/21 05/21/21 05/21/21 History Physical Exam Vital Signs: Vital Signs: Last Vital Signs Temp 97.9 F 05/22/21 09:42 Pulse 76 05/22/21 09:54 Resp 20 05/22/21 09:42 BP 113/43 L 05/22/21 09:54 Pulse Ox 97 05/22/21 09:54 Body Mass Index 28.1 Const: General: comfortable, no acute distress, alert and awake Orientation/consciousness: patient oriented x3 HENMT: Head: Yes normal to inspection General nose exam: No nasal polyps present and No nasal discharge present Face and sinus: Yes sinuses nontender Mouth: oropharynx normal Throat: Yes posterior oropharynx normal Eyes: General: appearance normal, both eyes and all related structures Neck: Neck: Yes normal visual inspection, Yes no lymphadenopathy, Yes trachea midline and Yes no JVD Thyroid: Thyroid normal Chest: Chest palpation & inspection: normal inspection of the chest, normal palpation of entire chest wall and no tenderness Resp: Other: Percussion note resonant,, breath sounds are distant with prolonged expiratory phase. Only a few, Creps and rhonchi over the basilar area. Cardio: Palpation: normal PMI Rate: regular rate Rhythm: regular rhythm Heart sounds: no gallops and no murmurs Peripheral pulses: Peripheral pulses 2+ throughout GI: Palpation (GI): Soft to palpation, nontender, No hepatosplenomegaly present and no masses Auscultation: normal bowel sounds Back/Spine/Pelvis: Thoracic/Lumbar Spine: thoracic and lumbar spine normal to inspection Skin: General skin exam: no rashes or lesions noted Neuro: General: patient oriented x3 and no focal motor deficits Cranial nerves: Yes CN's II-XII intact bilaterally Extrem: General: Yes normal to inspection, Yes no clubbing, cyanosis or edema and Yes no calf tenderness Psych: Appearance: grossly normal and well kempt Speech and movement: Normal speech and movement present Results Laboratory Findings CBC and BMP: 05/22/21 08:07 05/22/21 08:07 ABG, PT/INR, D-dimer: PT/INR, D-dimer PT 10.8 SEC (9.9-13.0) 05/21/21 22:00 INR 1.0 (0.9-1.1) 05/21/21 22:00 D-Dimer < 200 NG/ML 05/21/21 22:00 Abnormal lab findings: Abnormal Labs 05/21/21 05/21/21 05/21/21 21:45 22:00 22:00 Immature Gran % (Auto) 0.5 H Neut % (Auto) 76.2 H Lymph % (Auto) 12.3 L [place] % (Auto) Eos % (Auto) 4.3 H Lymph # (Auto) 0.8 L APTT 40.0 H VBG HCO3 Potassium Carbon Dioxide Anion Gap BUN Random Glucose Calcium Lactate Dehydrogenase RSV RNA Qual (PCR) POSITIVE A 05/21/21 05/22/21 05/22/21 22:00 01:45 08:07 Immature Gran % (Auto) Neut % (Auto) 88.6 H Lymph % (Auto) 9.8 L [place] % (Auto) 1.0 L Eos % (Auto) Lymph # (Auto) 0.7 L APTT VBG HCO3 35 H Potassium 3.2 L Carbon Dioxide 35 H Anion Gap 10 L BUN 8 L Random Glucose 136 H Calcium 8.1 L Lactate Dehydrogenase 233 H RSV RNA Qual (PCR) 05/22/21 08:07 Immature Gran % (Auto) Neut % (Auto) Lymph % (Auto) [place] % (Auto) Eos % (Auto) Lymph # (Auto) APTT VBG HCO3 Potassium Carbon Dioxide 35 H Anion Gap 11 L BUN 8 L Random Glucose 168 H Calcium 8.3 L Lactate Dehydrogenase RSV RNA Qual (PCR) Diagnostic Findings Chest x-ray: report reviewed and image reviewed Assessment and Plan (1) RSV (respiratory syncytial virus infection): Status: Acute PCR test for RSV is positive. This should resolve by itself in with 5-7 days TX : Has been started empirically on azithromycin and ceftriaxone. I think we can just complete course of azithromycin for 5 days, and she would not need ceftriaxone. Luckily COVID-19 test negative. (2) COPD exacerbation: Status: Acute Patient is the a smoker, CT scan in June 2020 did show indicate presence of emphysema. She has had no pulmonary evaluation so for. Clinically I think she does have COPD. TX: Treat with IV Solu-Medrol for 1 or 2 days then a short course of prednisone. Course of azithromycin as has been started. Ipratropium/albuterol updraft Q 6 hours while awake. She would need of evaluation with pulmonary function test as outpatient, after discharge (3) Smoker: Status: Acute She has been smoking 1 pack a day throughout her adult life. Discussed with her in great detail that she needs to quit. Prescribed nicotine patch for the time being. Procedures Date of Service Date of Service: 05/22/21
[2021-05-22] MEDS: Pregabalin 75 MG CAPSULE PO (10:56)
[2021-05-22] MEDS: Acetaminophen 325 MG TABLET 650 MG PO (12:07)
--- NOTE | 2021-05-22 12:13 | MHC.CM.PN ---
Met with pt to discuss d/c planning: pt resides with significant other, Quan and other family. She is independent with all care needs and does not have services or use adaptive equipment. PCP is Dr. Lin. Pt concerned with new dx of COPD, I smoke, you know and that'll be a problem. Discussed cessation options - unsure if pt will consider. No services anticipated at d/c - pt has transportation but does not have her cell phone with her to call. CM to follow for changes in plan
--- NOTE | 2021-05-22 12:21 | HO.PM.IMPN ---
Subjective Subjective Date of Service: 05/22/21 Interval History: Dyspnea and cough improved Now on 2L O2 via [place] No chest pain Review of Systems Review of Systems: Yes all other systems are reviewed and are negative Physical Exam Vital Signs: Vital Signs: Last Vital Signs Temp 97.1 F 05/22/21 11:21 Pulse 73 05/22/21 12:02 Resp 12 05/22/21 11:21 BP 128/64 05/22/21 11:21 Pulse Ox 93 05/22/21 11:21 Body Mass Index 28.1 Gen: in no acute distress HEENT: sclera anicteric, moist mucus membranes Neck: supple Lungs: scattered expiratory wheezes Heart: regular rate and rhythm, no murmurs Abd: soft, non-tender, non-distended Ext: no edema Skin: warm/well-perfused Neuro: alert and oriented x3, no focal findings Psych: appropriate affect Objective Data Active Medications Acetaminophen (Acetaminophen 325 Mg Tablet) 650 mg PO Q6H PRN PRN Reason: Pain, Mild (Pain Scale 1-3) Last Admin: 05/22/21 12:07 Dose: 650 mg Documented by: AZIZA Albuterol/Ipratropium (Albuterol/Iprat 2.5/0.5mg 3 Ml Ampul.Neb) 3 ml INHALE RQ4H WHILE AWAKE [facility] Last Admin: 05/22/21 12:01 Dose: 3 ml Documented by: SAUL Azithromycin (Azithromycin 500 Mg Tablet) 500 mg PO BEDTIME [facility] Last Admin: 05/21/21 21:00 Dose: 500 mg Documented by: IMELDA Benzonatate (Benzonatate 100 Mg Capsule) 100 mg PO TID PRN PRN Reason: Cough Clonazepam (Clonazepam 1 Mg Tablet) 1 mg PO TID [facility] Last Admin: 05/22/21 08:24 Dose: 1 mg Documented by: NOE Enoxaparin Sodium (Enoxaparin Sodium 40 Mg/0.4 Ml Syringe) 40 mg SUBCUT Q24H [facility] Last Admin: 05/22/21 02:00 Dose: 40 mg Documented by: IMELDA Escitalopram Oxalate (Escitalopram Oxalate 20 Mg Tablet) 20 mg PO DAILY [facility] Last Admin: 05/22/21 08:25 Dose: 20 mg Documented by: NOE Famotidine (Famotidine 20 Mg Tablet) 20 mg PO BID [facility] Last Admin: 05/22/21 08:24 Dose: 20 mg Documented by: NOE Gemfibrozil (Gemfibrozil 600 Mg Tablet) 600 mg PO BIDAC [facility] Last Admin: 05/22/21 07:51 Dose: 600 mg Documented by: NOE Ceftriaxone Sodium 1 gm/ (Sodium Chloride) 50 mls @ 100 mls/hr IV Q24H [facility] Levothyroxine Sodium (Levothyroxine Sodium 112 Mcg Tablet) 224 mcg PO DAILY@0630 [facility] Last Admin: 05/22/21 04:59 Dose: 224 mcg Documented by: IMELDA Lisinopril (Lisinopril 10 Mg Tablet) 10 mg PO DAILY [facility]; Protocol Last Admin: 05/22/21 08:24 Dose: 10 mg Documented by: NOE Melatonin (Melatonin 3 Mg Tablet) 6 mg PO BEDTIME PRN PRN Reason: Insomnia Methylprednisolone Sodium Succinate (Methylprednisolone Sod Succ 40 Mg/Ml Vial) 40 mg IVPUSH Q6H [facility] Last Admin: 05/22/21 12:03 Dose: 40 mg Documented by: COTCHRISTINA Paroxetine HCl (Paroxetine Hcl 10 Mg Tablet) 10 mg PO DAILY [facility] Last Admin: 05/22/21 08:24 Dose: 10 mg Documented by: NOE Pharmacy Consult (Consult Rx Perform Med Rec) 1 each MISCELLANE ONCE PRN PRN Reason: Consult order Pregabalin (Pregabalin 75 Mg Capsule) 75 mg PO DAILY [facility] Last Admin: 05/22/21 10:56 Dose: 75 mg Documented by: BRODIE Senna (Sennosides 8.6 Mg Tablet) 17.2 mg PO BEDTIME PRN PRN Reason: Constipation Sodium Chloride (0.9 % Sodium Chloride Flush 3 Ml Syringe) 3 ml IVFLUSH QSHIFT [facility] Last Admin: 05/22/21 07:37 Dose: Not Given Documented by: NOE Non-Admin Reason: Med Not Available Labs CBC & Chem 7: 05/22/21 08:07 05/22/21 08:07 Labs: Laboratory Results - last 24 hr 05/21/21 05/21/21 05/21/21 21:45 22:00 22:00 MCV 89.3 MCH 29.6 MCHC 33.2 RDW 13.1 Plt Count 190 MPV 10.1 Immature Gran % (Auto) 0.5 H Neut % (Auto) 76.2 H Lymph % (Auto) 12.3 L [place] % (Auto) 6.4 Eos % (Auto) 4.3 H Baso % (Auto) 0.3 Lymph # (Auto) 0.8 L [place] # (Auto) 0.4 Eos # (Auto) 0.3 Baso # (Auto) 0.0 Abs Immat Gran (auto) 0.03 Absolute Neuts (auto) 4.9 Absolute Nucleated RBC 0.000 Nucleated RBC % (auto) 0.0 PT 10.8 INR 1.0 APTT 40.0 H D-Dimer < 200 VBG pH VBG pCO2 VBG pO2 VBG HCO3 VBG O2 Saturation VBG Base Excess Anion Gap Estim Creat Clear Calc Estimated GFR Random Glucose Lactic Acid Calcium Ferritin Total Bilirubin AST ALT Alkaline Phosphatase Lactate Dehydrogenase Troponin I High Sens B-Natriuretic Peptide Total Protein Albumin Procalcitonin Coronavirus (PCR) NEGATIVE Influenza Type A (PCR) NEGATIVE Influenza Type B (PCR) NEGATIVE RSV RNA Qual (PCR) POSITIVE A 05/21/21 05/21/21 05/21/21 22:00 22:00 22:00 MCV MCH MCHC RDW Plt Count MPV Immature Gran % (Auto) Neut % (Auto) Lymph % (Auto) [place] % (Auto) Eos % (Auto) Baso % (Auto) Lymph # (Auto) [place] # (Auto) Eos # (Auto) Baso # (Auto) Abs Immat Gran (auto) Absolute Neuts (auto) Absolute Nucleated RBC Nucleated RBC % (auto) PT INR APTT D-Dimer VBG pH VBG pCO2 VBG pO2 VBG HCO3 VBG O2 Saturation VBG Base Excess Anion Gap 10 L Estim Creat Clear Calc 76.8 Estimated GFR > 60 Random Glucose 136 H Lactic Acid Calcium 8.1 L Ferritin 64 Total Bilirubin < 0.2 AST 17 ALT 11 Alkaline Phosphatase 82 Lactate Dehydrogenase 233 H Troponin I High Sens 4.3 B-Natriuretic Peptide 24 Total Protein 6.8 Albumin 4.1 Procalcitonin 0.03 Coronavirus (PCR) Influenza Type A (PCR) Influenza Type B (PCR) RSV RNA Qual (PCR) 05/21/21 05/22/21 05/22/21 22:00 01:45 08:07 MCV 89.9 MCH 29.4 MCHC 32.7 RDW 13.0 Plt Count 204 MPV 10.4 Immature Gran % (Auto) 0.4 Neut % (Auto) 88.6 H Lymph % (Auto) 9.8 L [place] % (Auto) 1.0 L Eos % (Auto) 0.1 Baso % (Auto) 0.1 Lymph # (Auto) 0.7 L [place] # (Auto) 0.1 Eos # (Auto) 0.0 Baso # (Auto) 0.0 Abs Immat Gran (auto) 0.03 Absolute Neuts (auto) 6.2 Absolute Nucleated RBC 0.000 Nucleated RBC % (auto) 0.0 PT INR APTT D-Dimer VBG pH 7.37 VBG pCO2 60 VBG pO2 63 VBG HCO3 35 H VBG O2 Saturation 89.0 VBG Base Excess 8.0 Anion Gap Estim Creat Clear Calc Estimated GFR Random Glucose Lactic Acid 1.5 Calcium Ferritin Total Bilirubin AST ALT Alkaline Phosphatase Lactate Dehydrogenase Troponin I High Sens B-Natriuretic Peptide Total Protein Albumin Procalcitonin Coronavirus (PCR) Influenza Type A (PCR) Influenza Type B (PCR) RSV RNA Qual (PCR) 05/22/21 08:07 MCV MCH MCHC RDW Plt Count MPV Immature Gran % (Auto) Neut % (Auto) Lymph % (Auto) [place] % (Auto) Eos % (Auto) Baso % (Auto) Lymph # (Auto) [place] # (Auto) Eos # (Auto) Baso # (Auto) Abs Immat Gran (auto) Absolute Neuts (auto) Absolute Nucleated RBC Nucleated RBC % (auto) PT INR APTT D-Dimer VBG pH VBG pCO2 VBG pO2 VBG HCO3 VBG O2 Saturation VBG Base Excess Anion Gap 11 L Estim Creat Clear Calc 85.1 Estimated GFR > 60 Random Glucose 168 H Lactic Acid Calcium 8.3 L Ferritin Total Bilirubin AST ALT Alkaline Phosphatase Lactate Dehydrogenase Troponin I High Sens B-Natriuretic Peptide Total Protein Albumin Procalcitonin Coronavirus (PCR) Influenza Type A (PCR) Influenza Type B (PCR) RSV RNA Qual (PCR) ITS Impressions Chest X-Ray 05/21/21 22:39 IMPRESSION: Unremarkable examination. Assessment and Plan (1) COPD exacerbation: Status: Acute Assessment and Plan: hospital d#1 51yo F with HTN, hypothyroidism, tobacco dependence, anxiety, depression presenting with dyspnea, admitted for hypoxia due to COPD exacerbation + RSV infection # acute hypoxic respiratory failure - wean O2 as tolerated # COPD exacerbation due to RSV infection - emphysema noted on CT June 2020, likely has undiagnosed COPD - IV steroids, standing/prn nebs - Pulm consult + outpt f/u, will d/c on controller inhalers as well - I do not see evidence of PNA- CXR is clear and PCT is low. d/c ceftriaxone + azithromycin # hypothyroidism - continue LT4 # anxiety/depression - continue paroxetine, escitalopram, clonazepam # peripheral neuropathy - continue pregabalin # tobacco dependence - NRT # VTE ppx - LMWH Quality Stroke Does the patient have a stroke diagnosis?: No VTE Prior VTE?: No VTE Risk Level:: Medical - moderate - high VTE Device Contraindication: Treatment Not Indicated VTE Drug Contraindication: N/A - Med Ordered
[2021-05-22] MEDS: 0.9 % Sodium Chloride Flush 3 ML SYRINGE IVFLUSH (15:35)
[2021-05-22] MEDS: Azithromycin 500 MG TABLET PO (21:36)
[2021-05-23] VITALS (7 sets, daily range): BP systolic 99–113; BP diastolic 52–60; PULSE 66–96; RESP 16–20; TEMP 36.1–36.4; O2SAT 86–97; BMI 32.5
[2021-05-23] MEDS: methylPREDNISolone Sod Succ 40 MG/ML VIAL IVPUSH ×3 (00:38→08:29)
[2021-05-23] MEDS: 0.9 % Sodium Chloride Flush 3 ML SYRINGE IVFLUSH ×2 (00:38→08:29)
[2021-05-23] MEDS: Enoxaparin Sodium 40 MG/0.4 ML SYRINGE SUBCUT (00:43)
[2021-05-23] MEDS: Acetaminophen 325 MG TABLET 650 MG PO (03:49)
[2021-05-23] MEDS: Levothyroxine Sodium 112 MCG TABLET 224 MCG PO (05:50)
[2021-05-23] MEDS: Albuterol/Iprat 2.5/0.5MG 3 ML AMPUL.NEB INHALE (07:14)
[2021-05-23] MEDS: clonazePAM 1 MG TABLET PO (08:29)
[2021-05-23] MEDS: PARoxetine HCL 10 MG TABLET PO (08:29)
[2021-05-23] MEDS: Escitalopram Oxalate 20 MG TABLET PO (08:29)
[2021-05-23] MEDS: lisinopriL 10 MG TABLET PO (08:29)
[2021-05-23] MEDS: Famotidine 20 MG TABLET PO (08:29)
[2021-05-23] MEDS: Pregabalin 75 MG CAPSULE PO (08:29)
[2021-05-23] MEDS: gemfibroziL 600 MG TABLET PO (08:29)
--- NOTE | 2021-05-23 11:35 | W.MHC.F2F ---
Service Date Service Date: 05/23/21 Encounter Date of encounter: 05/23/21 Reasons for Services Reason for senior care: medication treatment, teach disease management and other (home oxygen, respiratory assesssment) Reason for physical therapy: home safety and mobility, therapeutic exercises, gait/transfer training, assess need for DME, ADL training and energy conservation MD Overseeing Care: Alvaro Lin Homebound: Leaving the home is medically contraindicated at this time without the asist of a device and/or another person due th the listed conditions above and below. Reason homebound: shortness of breath with minimal effort and weakness related to hospital stay Certification: Based on the above findings, I certify that this patient is confined to the home and needs intermittent senior care care, physical therapy and/or speech therapy, or continues to need occupational therapy. The patient is under my care, and I have initiated the establishment of the plan of care. The patient will be followed by a physician who will periodically review the plan of care.
--- NOTE | 2021-05-23 11:44 | P.DS_ITS ---
DS: Providers Provider Date of Service: 05/23/21 Date of admission: 05/22/21 00:51 Date of discharge: 05/23/21 Primary care physician: Alvaro Lin MD Consults: 05/22/21 00:51 Consult to Pulmonology Routine Consulting Provider: Connor lAlan Reason for consultation: ?COPD; long time smoker; admitted with Hypoxia/RSV 05/22/21 01:31 Consult to Infectious Diseases Routine Consulting Provider: Zulma Shields Reason for consultation: pNA/RSV infection DS: Diagnosis Discharge Diagnosis (1) COPD exacerbation: Status: Acute (2) Hypoxia: Status: Resolved (3) RSV (respiratory syncytial virus infection): Status: Acute (4) Smoker: Status: Acute (5) Acute respiratory failure with hypoxia: Status: Acute (6) Viral sepsis: Status: Acute DS: Summary Hospital Course Hospital Course: From admission history and physical by hospitalist Darwin Gao, 05/22/21: 51-year-old female with a past medical history of hypertension, hypothyroidism, peripheral edema, tobacco dependence, anxiety, depression presented to the hospital with a chief complaint of shortness of breath. Patient reports that over the past few days she has been having cough with yellowish sputum production, complains of shortness of breath even at rest; and today she could not breathe hence called EMS and came to the hospital. Denies any chest pain palpitations lightheadedness or dizziness.? Denies any recent travel or sick contacts. Patient reports that she smokes about a pack of cigarettes but over the past few days she is not smoking October.? Also mentions he has decreased appetite and complains of generalized weakness. Denies any GI or symptoms. Review of all other systems is negative except mentioned above ER course: Per ER team patient's EKG was nonischemic; exam noted to have wheezing; ER team reported the EMS noted the patient was saturating in 70s and subsequently placed on 6 L of nasal cannula and brought to the hospital.? Subsequently in the ER patient was saturating in 80s on room air and was placed on supplemental oxygen.? Patient was given nebulizations, steroids; on labs noted to have RSV positive; COVID-19 negative; This 51yo F with HTN, hypothyroidism,? tobacco dependence, anxiety, depression; presenting with dyspnea was admitted for hypoxia due to suspected COPD exacerbation + RSV infection. Emphysema had been previously noted on a CT in June 2020 and she was not aware that she had COPD. She was treated with IV methylprednisolone and PO azithromycin along with nebulized bronchodilators. Pulmonology was consulted and recommended outpatient PFTs. She improved symptomatically and was discharged home to complete 3 more days of azithromycin and 3 more days of prednisone. She was also prescribed controller tiotropium inhaler and rescue albuterol inhaler. Smoking cessation was counseled and she was prescribed nicotine patch and gum to help with this. She was discharged on home O2 to use 2 liters with exertion only. Home VNA services were arranged. Time Spent with Patient Time attestation: Total time spent providing and/or coordinating discharge services: Discharge coordination time: Greater than 30 minutes Quality: Stroke Does the patient have a stroke diagnosis?: No Physical Exam Vital Signs: Vital Signs: Last Vital Signs Temp 97.1 F 05/23/21 11:39 Pulse 74 05/23/21 11:39 Resp 19 05/23/21 11:39 BP 113/56 L 05/23/21 11:39 Pulse Ox 94 05/23/21 11:39 Body Mass Index 32.5 Gen: in no acute distress HEENT: sclera anicteric, moist mucus membranes Neck: supple Lungs: clear with no adventitious sounds Heart: regular rate and rhythm, no murmurs Abd: soft, non-tender, non-distended Ext: no edema Skin: warm/well-perfused Neuro: alert and oriented x3, no focal findings Psych: appropriate affect DS: Data Data Completed and Pending Completed studies during hospitalization [Text1]: Laboratory Results WBC 7.0 X10*3/uL (4.8-10.8) 05/22/21 08:07 RBC 5.06 X10*6/uL (4.20-5.50) 05/22/21 08:07 Hgb 14.9 g/dl (12.0-16.0) 05/22/21 08:07 Hct 45.5 % (37-47) 05/22/21 08:07 MCV 89.9 fL (80-98) 05/22/21 08:07 MCH 29.4 pg (27.0-33.0) 05/22/21 08:07 MCHC 32.7 g/dl (31.0-35.0) 05/22/21 08:07 RDW 13.0 % (11.0-16.0) 05/22/21 08:07 Plt Count 204 X10*3/uL (160-400) 05/22/21 08:07 MPV 10.4 fL (9.4-12.3) 05/22/21 08:07 Immature Gran % (Auto) 0.4 % (0.0-0.4) 05/22/21 08:07 Neut % (Auto) 88.6 % (45-73) H 05/22/21 08:07 Lymph % (Auto) 9.8 % (20-40) L 05/22/21 08:07 [place] % (Auto) 1.0 % (2-11) L 05/22/21 08:07 Eos % (Auto) 0.1 % (0-4) 05/22/21 08:07 Baso % (Auto) 0.1 % (0-2) 05/22/21 08:07 Lymph # (Auto) 0.7 X10*3/uL (1.2-4.9) L 05/22/21 08:07 [place] # (Auto) 0.1 X10*3/uL (0.1-1.2) 05/22/21 08:07 Eos # (Auto) 0.0 X10*3/uL (0.0-0.4) 05/22/21 08:07 Baso # (Auto) 0.0 X10*3/uL (0.0-0.2) 05/22/21 08:07 Abs Immat Gran (auto) 0.03 X10*3/uL (0.00-0.03) 05/22/21 08:07 Absolute Neuts (auto) 6.2 X10*3/uL (2.0-8.3) 05/22/21 08:07 Absolute Nucleated RBC 0.000 X10*3/uL (0.0-0.012) 05/22/21 08:07 Nucleated RBC % (auto) 0.0 /100WBC (0.0-0.2) 05/22/21 08:07 PT 10.8 SEC (9.9-13.0) 05/21/21 22:00 INR 1.0 (0.9-1.1) 05/21/21 22:00 APTT 40.0 SEC (24.1-38.0) H 05/21/21 22:00 D-Dimer < 200 NG/ML 05/21/21 22:00 VBG pH 7.37 (7.32-7.43) 05/22/21 01:45 VBG pCO2 60 mmHg 05/22/21 01:45 VBG pO2 63 mmHg 05/22/21 01:45 VBG HCO3 35 mmol/L (22-26) H 05/22/21 01:45 VBG O2 Saturation 89.0 % 05/22/21 01:45 VBG Base Excess 8.0 mmol/L 05/22/21 01:45 Sodium 138 mmol/L (135-145) 05/22/21 08:07 Potassium 3.6 mmol/L (3.3-5.1) 05/22/21 08:07 Chloride 96 mmol/L (96-108) 05/22/21 08:07 Carbon Dioxide 35 mmol/L (22-29) H 05/22/21 08:07 Anion Gap 11 (12-20) L 05/22/21 08:07 BUN 8 mg/dL (9-16) L 05/22/21 08:07 Creatinine 0.84 mg/dL (0.5-1.4) 05/22/21 08:07 Estim Creat Clear Calc 85.1 05/22/21 08:07 Estimated GFR > 60 05/22/21 08:07 Random Glucose 168 mg/dL (60-115) H 05/22/21 08:07 Lactic Acid 1.5 mmol/L (0.5-2.0) 05/21/21 22:00 Calcium 8.3 mg/dL (8.4-10.2) L 05/22/21 08:07 Ferritin 64 ng/mL (10-250) 05/21/21 22:00 Total Bilirubin < 0.2 mg/dL (0.0-1.0) 05/21/21 22:00 AST 17 U/L (5-31) 05/21/21 22:00 ALT 11 U/L (0-31) 05/21/21 22:00 Alkaline Phosphatase 82 U/L (39-117) 05/21/21 22:00 Lactate Dehydrogenase 233 U/L (122-220) H 05/21/21 22:00 Troponin I High Sens 4.3 ng/L (<3.5-17.0) 05/21/21 22:00 B-Natriuretic Peptide 24 pg/mL (<100) 05/21/21 22:00 Total Protein 6.8 g/dL (6.5-8.0) 05/21/21 22:00 Albumin 4.1 g/dL (3.5-5.0) 05/21/21 22:00 Procalcitonin 0.03 ng/mL 05/21/21 22:00 Coronavirus (PCR) NEGATIVE (Negative) 05/21/21 21:45 Influenza Type A (PCR) NEGATIVE (Negative) 05/21/21 21:45 Influenza Type B (PCR) NEGATIVE (Negative) 05/21/21 21:45 RSV RNA Qual (PCR) POSITIVE (Negative) A 05/21/21 21:45 Impressions Chest X-Ray 05/21/21 22:39 IMPRESSION: Unremarkable examination. Discharge Plan Discharge Patient Disposition: Home Health Service Discharge Diagnosis: hypoxia, COPD exacerbation, RSV infection Referrals: Connor Allan MD [Physician] - 2 Weeks Alvaro Lin MD [Primary Care Provider] - 1 Week Discharge Medications: New nicotine (polacrilex) 2 mg Gum 2 mg buccal Q1H PRN (Reason: nicotine cravgins) Qty: 100 RF: 0 azithromycin 500 mg Tablet 500 mg PO BEDTIME Qty: 3 RF: 0 Spiriva with HandiHaler 18 mcg Capsule, W/Inhalation Device 18 mcg inhalation RDAILY Qty: 30 RF: 0 prednisone 20 mg tablet 40 mg PO DAILY Qty: 6 RF: 0 albuterol sulfate 90 mcg/actuation HFA aerosol inhaler 2 puff inhalation Q4-6H PRN (Reason: shortness of breath or wheezing) Qty: 8.5 RF: 0 nicotine 21 mg/24 hr patch 24 hour 1 patch transdermal DAILY Qty: 28 RF: 0 Continued lisinopril 10 mg tablet 10 mg PO DAILY RF: 0 levothyroxine [Synthroid] 112 mcg tablet 224 mcg PO DAILY RF: 0 clonazepam 1 mg Tablet 1 mg PO TID RF: 0 gemfibrozil 600 mg Tablet 600 mg PO BID RF: 0 citalopram 40 mg Tablet 40 mg PO DAILY RF: 0 pregabalin 75 mg Capsule 75 mg PO DAILY RF: 0 furosemide 40 mg Tablet 40 mg PO Q OTHER DAY RF: 0 furosemide 40 mg Tablet 60 mg PO Q OTHER DAY RF: 0 paroxetine HCl 10 mg tablet 10 mg PO DAILY RF: 0 Discharge Orders: Discharge Order (Routine); Ordered 05/23/21 Ordered By: Lei Fitch Diet: advance to usual diet and low salt diet Activity on Discharge: oxygen Stand Alone Forms: Patient Portal Discharge page Other Ambulatory Orders: RT pulmonary function test (Routine) Location: None Selected Ordered By: Lei Fitch Care Plan Goals: lung health avoid hospitalization quit smoking Health Concerns: COPD exacerbation hypoxia RSV infection tobacco abuse Plan of Treatment: use 2 L of oxygen with exertion take azithromycin 500 mg daily x 3 more days take prednisone 40 mg daily x 3 more days use tiotropium 18 mcg inhaled daily every day use albuterol inhaler 2 puffs every 4-6 hours as needed for shortness of breath or wheeze quit smoking; use nicotine patch and gum to help you quit see your primary care doctor in 1 week see [employer] in 2 weeks outpatient Pulmonary Function Testing in 1-2 weeks Assessment: see Discharge Summary Patient Instructions: COPD (Chronic Obstructive Pulmonary Disease) (DC)
--- NOTE | 2021-05-23 11:57 | MHC.CM.PN ---
pt dcd home today with edward quinteros ordered by
== END 2021-05-23 12:52 | disposition home or self-care (01) | DRG 193 ==
LOC: HO.ED 05-22 00:22 → HO.EDOVER 05-22 01:01 → HO.ISO 05-22 07:34 → HO.S3 05-22 14:21
PROVIDERS: Physician Assistant; Admitting Provider Hospitalist; Emergency Provider Emergency Medicine; PCP Internal Medicine; Visit Provider Family Medicine
DX: J12.1 Respiratory syncytial virus pneumonia (principal); J96.01 Acute respiratory failure with hypoxia; Z20.822 Contact with and (suspected) exposure to COVID-19; G62.9 Polyneuropathy, unspecified; J43.9 Emphysema, unspecified; F17.210 Nicotine dependence, cigarettes, uncomplicated; E03.9 Hypothyroidism, unspecified; F41.9 Anxiety disorder, unspecified; F32.9 Major depressive disorder, single episode, unspecified; Z71.6 Tobacco abuse counseling; Z79.890 Hormone replacement therapy; Z79.899 Other long term (current) drug therapy
CPT/HCPCS: 0241U; 36415; 71045; 80048; 80053; 82728; 82803; 83605; 83615; 83880; 84145; 84484; 85025; 85379; 85610; 85730; 87040; 93005; 97161; 99285; J0696; J1650; J2920; J2930